=== PATIENT | male | born 1995 | race Caucasian/White ===

== ENCOUNTER 2024-12-08 01:59 | Emergency (ER) | payer MEDICAID, SELFPAY ==
[2024-12-08 02:00] VITALS: BP 113/70; PULSE 78; RESP 18; TEMP 36.9; O2SAT 97; BMI 29.5
--- NOTE | 2024-12-08 02:32 | EDS_ITS ---
HPI HPI - URI History of Present Illness Chief Complaint: Ear Problem Informant: patient Narrative Narrative: Healthy 29-year-old male states he has had a mild nonproductive cough recently without dyspnea or chest pain, and in the past 4 days he has had a left earache without changes in hearing or discharge, as well as for the past 2 days the left maxillary molar tooth ache without discharge or bleeding. No facial swelling, no throat swelling. ROS ROS ED Constitutional Constitutional ED: Denies chills or fever(s) Eyes Eyes: Denies change in vision or double vision ENT ENT ED: Reports ear pain left and nasal congestion; Denies sore throat Cardiovascular Cardiovascular: Denies chest pain or palpitations Respiratory/Chest Respiratory/Chest: Reports cough; Denies dyspnea or sputum Gastrointestinal Gastrointestinal: Denies abdominal pain, diarrhea, nausea or vomiting Genitourinary Genitourinary ED: Denies dysuria or hematuria Musculoskeletal Musculoskeletal: Denies myalgias or neck pain Integumentary Denies abscess or rash Neurologic Neurologic: Denies headache(s), paresthesias or weakness Psychiatric Psychiatric: Denies depression or suicidal thoughts Endocrine Endocrinology: Denies polydipsia or polyuria PFSH PFSH Medical History no medical history no medical history Home Medications ?Medication ?Instructions ?Recorded ?Last Taken ?Type albuterol sulfate 90 mcg/actuation 2 puff inhalation 4 X/DAY 12/08/24 Unknown History aerosol inhaler amoxicillin 875 mg-potassium 875 mg PO Q12H #20 TABLET S 12/08/24 Unknown Rx clavulanate 125 mg tablet benzonatate 200 mg capsule 200 mg PO TID PRN PRN cough 12/08/24 Unknown History Allergy/AdvReac Type Severity Reaction Status Date / Time No Known Allergies Allergy Verified 12/08/24 01:59 Surgical History H/O wisdom tooth extraction Social History Smoking Status: Never smoker EXAM Physical Exam Const Vital Signs: 12/08/24 02:00 12/08/24 02:53 Temperature 98.4 F 98.0 F Temperature Source Oral Pulse Rate 78 85 Respiratory Rate 18 16 Blood Pressure 113/70 123/78 H Blood Pressure Mean 84 93 Pulse Ox 97 100 Oxygen Delivery Method Room Air Positive well nourished and well developed General Appearance ED: well developed and NAD HEENT Reports moist mucous membranes HEENT Narrative: No trismus. Tender tooth #17, without an associated abscess. No bleeding from the gums or signs of necrosis. No external swelling/asymmetry. No periauricular lymphadenopathy or other cervical lymphadenopathy. Left TM is erythematous and dulled, there is no evidence of perforation or EAC swelling. Right TM and EAC are normal. normocephalic and atraumatic Face and Sinus: sinuses nontender Throat: Negative for posterior oropharynx abnormal Eyes PERRL and EOMs intact bilaterally Neck no lymphadenopathy, supple and no meningeal signs Resp normal respiratory effort and clear to auscultation bilaterally Cardio no murmurs Rate: regular rate Rhythm: regular rhythm Neuro oriented x3, CN's II-XII intact bilaterally and no sensory deficits noted Sensorium / Orientation: alert Gait (Neuro): normal gait Motor Exam: strength 5/5 throughout Psych mental status grossly normal and thought process normal Skin no rashes or lesions noted and no wounds Lesions: no lesions Rashes: no rashes MDM MDM MDM Narrative Medical decision making narrative: Consistent with a left otitis media likely related or secondary to viral URI. His lungs are clear, vital signs are normal, pulse ox 100% I do not think he needs a chest x-ray or other testing for that. With regards to the tooth, the Augmentin that we placed him on for the ear should cover any early dental infection, he already has an appointment with dentistry this coming week, and he was given an ibuprofen for the pain here tonight. Discharge Plan Triage Chief Complaint: Ear Problem ED Provider: Edis Pérez Dx/Rx/DC Orders Clinical Impression: Acute left otitis media, Viral URI with cough, Odontalgia Instructions: ED Otitis Media Adult Prescriptions: New amoxicillin-pot clavulanate 875-125 mg tablet 875 mg PO Q12H Qty: 20 0RF No Action albuterol sulfate 90 mcg/actuation HFA aerosol inhaler 2 puff inhalation 4X/DAY benzonatate 200 mg capsule 200 mg PO TID PRN PRN (Reason: cough) Primary Care Provider: Care Physician,No Primary Referrals: Dentist,Your [STAFF PHYSICIAN, Dentistry] - Keep [facility] appointment Doctor,Your [Non-Staff, None] - 1 Week if not improving Referral Note: with regards to your earache Print Language: Persian Disposition Disposition: Home, Self Care Discharge Date/Time: 12/08/24 02:55
--- OUTSIDE RECORDS SUMMARY | 2024-12-08 02:46 | XMS RPT_ITS | CCD ---
Author Organization [facility] Care Team Providers Care Environmental Management Specialist Name Role Phone Tank Donis Unavailable Unavailable Tank Donis Unavailable Unavailable Young, Isabel S Unavailable Unavailable Young, Isabel S Unavailable Unavailable Gage Lyon E Unavailable Gage Lyon Primary Care Provider No, Physician Primary Care Provider Unavailabl e No, Physician Primary Care Provider Unavailabl e Brad, Edward E Primary Care Provider GAGE LYON Primary Care Unavailabl marylou Lyon MD, Edkristy Primary Care Provider [phone] PACO WILKINS Attending Unavailable GAGE LYON Primary Care Unavailabl JOSE EDUARDO Arellano Attending Unavailable NO, PHYSICIAN Primary Care Unavailable JOSE EDUARDO LUCAS Attending Unavailable NO, PHYSICIAN Primary Care Unavailable KRIS HERNANDEZ Attending Unavaila ble NO, PHYSICIAN Primary Care Unavailable NO, PHYSICIAN Primary Care Unavailable Gage Lyon MD Primary Care Provider Unavaila ble Unavailable Primary Care Provider Unavailabl e Unavailable Primary Care Provider Unavailabl e LYON, EDWARD Primary Care Unavailable JOSE MIGUEL TYLER Attending Unavailable LYON, EDWARD Primary Care Unavailable KEESHA PADILLA Attending Unavailable Assessment, Health Risk Referring Unavaila ble Assessment, Health Risk Attending Unavaila ble LYON, EDWARD Primary Care Unavailable KRZYSZTOF BYRNE Attending Unavailable DIMITRIOS ZAPATA Attending Unavailable VICTOR HUGO SANTIAGO Attending Unavail able NO, PHYSICIAN Primary Care Unavailable YOU PHAN Attending Unavailable NO, PHYSICIAN Primary Care Unavailable Medications Current Medications Medication Drug Class(es) Dates Sig (Normalized) Sig (Original) amoxicillin 875 mg / clavulanate 125 mg oral tablet (3 sources) Penicillin-class Antibacterial Start: 10-12-2023 End: 10-12-2023 1 tablet, Oral, ONCE, 1 dose, On 10/12/23 at 2345 Start: 10-12-2023 End: 10-19-2023 take 1 tablet by mouth every twelve hours Amoxicillin-clavulanate 875-125 MG table t Take 1 tablet by mouth every 12 hours for 7 days. 14 tablet 10/12/2023 10/19/2023 Active Start: 07-21-2023 End: 07-21-2023 1 tablet, Oral, ONCE, 1 dose , On Padmini 07/21/23 at 0130 azithromycin 250 mg oral tablet (3 sources) Macrolide Antimicrobial Start: 02-27-2018 End: 03-02-2018 take 1 tablet by mouth once daily azithromycin 250 MG Tab tablet 250 mg PO Once Daily X 4 days 4 tablet 0 02/27/2018 03/02/2018 Active Start: 02-27-2018 End: 02-27-2018 azithromycin (ZITHROMAX) tab let 500 mg benzonatate 200 mg oral capsule (13 sources) Non-narcotic Antitussive Start: 05-22-2018 take 0.5 capsule by mouth three times daily as needed for cough benzonatate 200 MG Cap capsule Take 0.5 capsules by mouth 3 times daily as needed for Cough. 20 capsule 05/22/2018 Active Start: 02-27-2018 End: 05-22-2018 take 1 capsule by mouth three times daily as needed for cough benzonatate 100 MG Cap capsule Take 1 capsule by mouth 3 times daily as needed for Cough. 21 capsule 0 02/27/2018 05/22/2018 Discontinued brompheniramine maleate 0.4 mg/ml / dextromethorphan hydrobromide 2 mg/ml / pseudoephedrine hydrochloride 6 mg/ml oral solution (2 sources) alpha-Adrenergic Agonist, Uncompetitive E-zhhcpk-I-aspartate Receptor Antagonist, Sigma-1 Agonist Start: 06-03-2024 take 5-10 mL by mouth every eight hours as needed pzrmglpowqgkqye-tbvziptdgdtzvhb-llkkatat thorphan 30-2-10 MG/5ML Syrup Take 5-10 mL by mouth every 8 hours as needed. 118 mL 06/03/2024 Active cetirizine hydrochloride 10 mg oral tablet (3 sources) Histamine-1 Receptor Antagonist Start: 01-22-2024 take 1 tablet by mouth once daily Cetirizine 10 MG tablet Take 1 tablet by mouth daily. 30 tablet 01/22/2024 Active ciprofloxacin 3 mg/ml / dexamethasone 1 mg/ml otic suspension (6 sources) Corticosteroid, Quinolone Antimicrobial Ciprofloxacin-dexame thasone 0.3-0.1 % Suspension otic suspension 4 drops Twice daily. Active fluticasone propionate 0.05 mg/actuat metered dose nasal spray (6 sources) Corticosteroid Start: 01-22-2024 take 2 spray(s ) nasal route once daily fluticasone 50 MCG/ACT Suspension nasal spray 2 sprays each nostril daily 9.9 mL 01/22/2024 Active Start: 11-30-2022 End: 11-30-2023 fluticasone 50 MCG/ACT Suspe nsion nasal spray 2 sprays by Nasal route daily. 11/30/2022 11/30/2023 Active ibuprofen 400 mg oral tablet (10 sources) Nonsteroidal Anti-inflammatory Drug Start: 06-04-2020 take 1 tablet by mouth every six hours as needed ibuprofen (ADVIL,MOTRIN) 400 MG tablet Take 1 (one) tablet (400 mg total) by mouth every 6 (six) hours as needed . 30 tablet 0 06/04/2020 Active Start: 06-04-2020 End: 06-04-2020 ibuprofen (ADVIL,MOTRIN) tab let 400 mg Start: 05-23-2018 take 1 tablet by georgie every eight hours as needed ibuprofen 600 MG Tab tablet Take 1 tablet by mouth every 8 hours as needed for Moderate Pain or Severe Pain. 21 tablet 05/23/2018 Active ondansetron 4 mg disintegrating oral tablet (4 sources) Serotonin-3 Receptor Antagonist Start: 08-08-2019 End: 08-13-2019 take 1 tablet by mouth every eight hours as needed ondansetron (Zofran ODT) 4 MG disintegrating tablet Dissolve 1 (one) tablet (4 mg total) on top of tongue every 8 (eight) hours as needed for nausea . 15 tablet 0 08/08/2019 Active Start: 08-08-2019 End: 08-08-2019 ondansetron (ZOFRAN) injecti on 4 mg predniSONE (3 sources) Start: 01-22-2024 predniSONE 10 MG (21) Tab Therapy Pack Take 6 pills on day 1, then 5, 4, 3, 2 and 1 each day sequentially 21 Each 01/22/2024 Active Completed/Discontinued Medications Medication Drug Class(es) Dates Sig (Normalized) Sig (Original) acetaminophen 500 mg oral tablet (1 source) Start: 05-23-2018 End: 05-23-2018 acetaminophen (TYLENOL) tablet 1,000 mg acetaminophen 325 mg / HYDROcodone bitartrate 5 mg oral tablet (2 sources) Opioid Agonist Start: 10-12-2023 End: 10-12-2023 Oral, ONCE, 1 dose, On Tue10/12/23 at 2345, Provide patient with 4 pack of Acetaminophen/Hydroc odone 325-5 mg, take 1 tabs by mouth every 4 hours as needed for pain. Nursing to document as GIVEN on the MAR and include comment of patient receipt of the 4 pack. Start: 07-21-2023 End: 07-21-2023 1 tablet, Oral, ONCE, 1 dose , On Padmini 07/21/23 at 0130 24 hr fexofenadine hydrochloride 180 mg / pseudoephedrine hydrochloride 240 mg extended release oral tablet (4 sources) alpha-Adrenergic Agonist, Histamine-1 Receptor Antagonist Start: 11-30-2022 End: 01-22-2024 take 180-240 mg by mouth every twenty-four hours fexofenadine-pseudoephedrine 180-240 MG Tab SR 24 HR Take 1 tablet by mouth daily. 30 tablet 11/30/2022 01/22/2024 Discontinued 1000 ml sodium chloride 9 mg/ml injection (1 source) Start: 08-08-2019 End: 08-08-2019 sodium chloride 0.9% (NS) bolus 1,000 mL Problems Active Problems Problem Classification Problem Date Documented Da te Episodic/Chronic Chronic obstructive pulmonary disease and bronchiectasis (1 source) Bronchitis Episodic Conditions associated with dizziness or vertigo (1 source) Benign paroxysmal positional vertigo; Translations: [Vertigo, benign positional, unspecified laterality] Episodic Nausea and vomiting (1 source) Nausea, vomiting and diarrhea; Translations: [Nausea vomiting and diarrhea] Episodic Other lower respiratory disease (1 source) Respiratory tract congestion and cough; Translations: [Respiratory tract congestion with cough] 01-22-2024 Episodic Other upper respiratory disease (1 source) Allergic rhinitis; Translations: [Allergic rhinitis, unspecified] 01-22-2024 Chronic Other upper respiratory disease (2 sources) Allergic rhinitis, unspecified; Translations: [Allergic rhinitis, unspecified] Onset: 01-22-2024 Chronic Other upper respiratory infections (11 sources) Viral upper respiratory tract infection; Translations: [Acute pharyngitis] Onset: 06-03-2024 12-04-2022 Episodic Otitis media and related conditions (6 sources) Unspecified Eustachian tube disorder, right ear; Translations: [Acute serous otitis media, right ear] Onset: 07-01-2024 Episodic Unclassified (1 source) Sprain of right ankle; Translations: [Sprain of right ankle, unspecified ligament, initial encounter] Unclassified (2 sources) Exposure to STD; Translations: [Exposure to STD] Onset: 07-10-2024 Unclassified (1 source) Other specified cough; Translations: [Other specified cough] Onset: 01-22-2024 Viral infection (1 source) Viral disease; Translations: [Viral syndrome] Episodic Past or Other Problems Problem Classification Problem Date Documented Da te Episodic/Chronic Acute bronchitis (2 sources) Acute bronchitis, unspecified; Translations: [Acute bronchitis, unspecified] Onset: 02-25-2023 Episodic Disorders of teeth and jaw (9 sources) Infection of tooth; Translations: [Periapical abscess without sinus] Onset: 07-04-2023 07-21-2023 Episodic Other ear and sense organ disorders (2 sources) Other specified disorders of right ear; Translations: [Other specified disorders of right ear] Onset: 11-30-2022 Episodic Unclassified (1 source) Other specified cough; Translations: [Other specified cough] Onset: 01-22-2024 NEGATED: Highlighted row has been ruled out!Unclassified (2 sources) No known active problems 06-28-2017 Results Test Name Value Interpretation Reference Range Facility ED Prov Noteon 11-09-2024 ED Prov Note ED PROVIDER NOTE [facility] EMERGENCY [facility]PART[facility] NAME: Landry Durham AGE: 29 y.o. : 1995 VISIT DATE: 11/09/2024 CSN: [id number] PCP: No, Physician Chief Complaint Patient presents with Cerumen Impaction 29-year-old male presents complaining of feeling of clogging of his right eardrum or ear canal. There is a pressure feeling there but no actual pain. He went to an urgent care a couple of days ago and was told there was wax and they could not see his eardrum. They placed him on amoxicillin which she has been taking for a couple of days but he has not resolved his feeling in that ear. His left ear feels fine. He has had some nasal congestion recently. No sore throat. No cough. History reviewed. No pertinent past medical history. Past Surgical History: Procedure Laterality Date WISDOM TOOTH EXTRACTION History reviewed. No pertinent family history. Social History [1] Previous Medications Medication Sig amoxicillin-clavulanate (AUGMENTIN) 875-125 mg per tablet ciprofloxacin-dexAMETHasone (CIPRODEX) otic suspension 4 (four) drops 2 (two) times a day . fluticasone propionate (FLONASE) 50 mcg/actuation nasal spray Instill 2 (two) sprays into each nostril daily . ondansetron (Zofran ODT) 4 MG disintegrating tablet Dissolve 1 (one) tablet (4 mg total) on top of tongue every 8 (eight) hours as needed for nausea . Allergies[2] Review of Systems All other review of systems not mentioned in the HPI are negative. Patient Vitals for the past 24 hrs: BP Temp Temp src Pulse Resp SpO2 Height Weight 11/09/24 2137 117/79 98.5 degrees F (36.9 degrees C) Oral 82 16 98 % 6' 1 98.9 kg (218 lb) Physical Exam CONSTITUTIONAL: Well-developed, well-nourished. Speaking full sentences in no apparent distress. EYES: No conjunctival injection. No icterus. EARS: External ears appear normal. No tragal tenderness. Left EAC is clear with normal bony landmarks and normal TM. Right EAC with small amount of wax but I am able to see around and see its tympanic membrane which shows normal bony landmarks but with serous fluid and mild erythema. NOSE: The nose is normal in appearance. There is no rhinorrhea. NECK: The trachea is mid-line. No adenopathy CARDIOVASCULAR: The heart has a regular rate and rhythm. No cyanosis RESPIRATORY: There is normal chest excursion with respiration. No stridor. GASTROINTESTINAL: Abdomen nondistended. MUSCULOSKELETAL: There are no deformities noted in all four extremities. INTEGUMENTARY: The exposed skin appears normal for age and race. It is warm and dry. No petechiae or purpuric lesions are noted. PSYCHOLOGICAL: The patient's mood and manner are appropriate. Grooming and personal hygiene are appropriate. NEURO: No focal weakness with equal strength bilaterally. . Laboratory & Radiographic Imaging (if done): No results found for this visit on 11/09/24. No orders to display Procedures Medical Decision Making Patient presents with exam consistent with serous otitis media and eustachian tube dysfunction. EAC is with small amount of wax but there is no cerumen impaction present. Patient has been on a couple of days of antibiotics so I am not going to stop those. Patient will be treated with Sudafed, Afrin, Zyrtec. No evidence of acute mastoiditis, or other serious bacterial illness/sepsis. Okay for outpatient therapy. Follow up and return precautions were discussed. . . Clinical Impression: 1. Dysfunction of right eustachian tube 2. Right acute serous otitis media, recurrence not specified ED Disposition ED Disposition Discharge Condition Stable Comment Landry B Jimenez discharged to home/self care in stable condition. Follow-up Information 1. Please follow up. Follow-up with primary care doctor in 3 to 4 days if not improved Contact information for after-discharge care Follow-up information has not been specified. New Prescriptions oxymetazoline (AFRIN) 0.05 % nasal spray Instill 2 (two) sprays into each nostril 2 (two) times a day for 3 days . pseudoePHEDrine (SUDAFED) 120 mg 12 hr tablet Take 1 (one) tablet (120 mg total) by mouth every 12 (twelve) hours for 5 days . cetirizine (ZYRTEC) 10 MG tablet Take 1 (one) tablet (10 mg total) by mouth daily for 10 days . [1] Social History Socioeconomic History Marital status: Single Tobacco Use Smoking status: Never Smokeless tobacco: Never Vaping Use Vaping status: Former Substance and Sexual Activity Alcohol use: Not Currently Comment: rarely Drug use: Never [2] No Known Allergies You Phan MD 11/09/24 6053 AUTHENTICATED BY YOU PHAN, ON 11/09/2024 21:54:[address] [facility] RAPID STREP A ANTIGENon 06- S. pyogenes Ag Ql (Throat) Negative NEGATIVE [facility] Comment on above: STREP CULTURE TO FOLLOW TESTING PERFORMED BY SRINIVASA Testing performed at [address] RAPID STREP GROUP Aon 2024 S. pyogenes Ag IA Ql (Unsp spec) Negative Normal NEGATIVE [facility] Comment on above: Result Comment: STREP CULTURE TO FOLLOW TESTING PERFORMED BY SRINIVASA Testing performed at [place] [address] Performed By: #### R SAT #### [place] [address] THROAT CULTUREon 08-26-2024 Throat culture SPECIMEN DESCRIPTION THROAT SWAB CULTURE USUAL OROPHARYNGEAL JEAN CARLOS * Result Note: Testing performed at [place] [address] * REPORT STATUS 08/28/2024 * Result Note: FINAL * Normal [facility] Comment on above: Performed By: #### THRC #### [place] [address] Mumps Antibody,IgGon 025 MUMPS Ab, IgG < 9.0 Low Immune >10.[address] [facility] Comment on above: Result Comment: Negative <9.0 Equivocal 9.0 - 10.9 Positive >10.9 A positive result generally indicates past exposure to Mumps virus or previous vaccination. Performed By: #### L 509.4006, L3100.3400, L3400.1750 #### [facility] [address] [place], [place], [id number] [facility] EMP Rubeola Titeron 05-0 RUBEOLA Ab, IgG 202.0 AU/mL Normal Immune >16.4 [facility] Comment on above: Result Comment: Negative <13.5 Equivocal 13.5 - 16.4 Positive >16.4 Presence of antibodies to Rubeola is presumptive evidence of immunity except when acute infection is suspected. Performed at: [facility] [address] [id number] Building Custodial Supervisor: Jose Alberto Bucio PhD, Phone: [phone] Performed By: #### L 509.4006, L3100.3400, [id number] #### [facility] [address] [place], [place], [id number] Hepatitis B Surface Antibody on 07-24-2024 HEP B Surf Ab REAC Normal [facility] Comment on above: Result Comment: <8.5 mIU/mL: Non-Reactiv e 8.5<= x <11.5 mIU/mL: Indeterminate >=11.5 mIU/mL: Reactive Non Reactive: Inconsistent with immunity less than <10 mIU/mL Reactive: Consistent with immunity greater than or equal to 10 mIU/mL Performed By: #### L 3890.6202 #### [facility] [address] [place], [place], [id number] L509.4006on 07-24-2024 Rubella IgG REAC Normal Nonreactive [facility] Comment on above: Result Comment: Antibody Result: Interpr etation Non-Reactive: Non-Immune Reactive: Immune The following results were obtained with the [employer] Rubella IgG assay. Results from assays of other manufacturers cannot be used interchangeably. Performed By: #### L 509.4006, L3100.3400, L3400.1750 #### [facility] [address] [place], [place], [id number] ED Prov Noteon 07-01-2024 ED Prov Note ED PROVIDER NOTE [facility] EM[facility]Y [facility] NAME: Landry Durham AGE: 28 y.o. : 1995 VISIT DATE: 07/01/2024 CSN: [id number] PCP: No, Physician Chief Complaint Patient presents with Otalgia 28-year-old male presents here today complaining of right ear pain since Tuesday. He denies any drainage. He has had some nasal congestion. He has been using some DayQuil without relief. Due to ongoing right ear pain came to the ER for further evaluation. He denies drainage. He used to get ear infections a lot as a kid. He did have tympanostomy tubes as an infant. No past medical history on file. Past Surgical History: Procedure Laterality Date WISDOM TOOTH EXTRACTION No family history on file. Social History [1] Previous Medications Medication Sig ciprofloxacin-dexAMETHasone (CIPRODEX) otic suspension 4 (four) drops 2 (two) times a day . fluticasone propionate (FLONASE) 50 mcg/actuation nasal spray Instill 2 (two) sprays into each nostril daily . ondansetron (Zofran ODT) 4 MG disintegrating tablet Dissolve 1 (one) tablet (4 mg total) on top of tongue every 8 (eight) hours as needed for nausea . Allergies[2] Review of Systems Constitutional: Negative for fever. HENT: Positive for ear pain and postnasal drip. Negative for ear discharge and sore throat. Respiratory: Negative for cough. Cardiovascular: Negative for chest pain. Gastrointestinal: Negative for vomiting. Musculoskeletal: Negative for arthralgias. Skin: Negative for rash. Neurological: Negative for headaches. Patient Vitals for the past 24 hrs: BP Temp Temp src Pulse Resp SpO2 Height Weight 07/01/24 1242 117/87 98.2 degrees F (36.8 degrees C) Oral 74 18 98 % 5' 11 99.8 kg (220 lb) Physical Exam Vitals and nursing note reviewed. Constitutional: Appearance: He is well-developed. HENT: Head: Normocephalic and atraumatic. Right Ear: Tympanic membrane is injected, erythematous and bulging. Left Ear: Tympanic membrane is not injected. Musculoskeletal: General: Normal range of motion. Pulmonary: Effort: Pulmonary effort is normal. Skin: General: Skin is warm and dry. Neurological: Mental Status: He is alert and oriented to person, place, and time. Psychiatric: Behavior: Behavior normal. Laboratory & Radiographic Imaging (if done): No results found for this visit on 07/01/24. No orders to display Procedures Medical Decision Making 28-year-old male presents ER today with right ear pain with a bulging tympanic membrane and redness. Patient was started on Amoxil. I did recommend continue on his DayQuil to help relieve the congestion. Tylenol recommended for pain. The patient has been informed that they may have pre-hypertension or hypertension based on a blood pressure reading in the Emergency Department. I recommend that the patient call the primary care provider listed on their discharge instructions or a physician of their choice as soon as possible to arrange follow-up in the next 4 weeks for further evaluation of possible pre-hypertension or hypertension. . Clinical Impression: 1. Right otitis media, unspecified otitis media type ED Disposition ED Disposition Discharge Condition Stable Comment Landry Durham discharged to home/self care in stable condition. Follow-up Information Follow-up information has not been specified. Contact information for after-discharge care Follow-up information has not been specified. New Prescriptions amoxicillin (AMOXIL) 500 MG capsule Take 1 (one) capsule (500 mg total) by mouth 3 (three) times a day for 7 days . Victor Hugo Santiago MD 07/01/24 1246 [1] Social History Socioeconomic History Marital status: Single Tobacco Use Smoking status: Never Smokeless tobacco: Never Vaping Use Vaping status: Some Days Substance and Sexual Activity Alcohol use: Not Currently Comment: rarely Drug use: Never [2] No Known Allergies Victor Hugo Santiago MD 07/01/24 1246 AUTHENTICATED BY VICTOR HUGO SANTIAGO, ON 07/01/2024 12:46:[address] [facility] RAPID STREP A ANTIGENon 05-19 S. pyogenes Ag Ql (Throat) Negative NEGATIVE [facility] Comment on above: STREP CULTURE TO FOLLOW TESTING PERFORMED BY SRINIVASA [facility] RAPID STREP GROUP Aon 2024 S. pyogenes Ag IA Ql (Unsp spec) Negative Normal NEGATIVE [facility] Comment on above: Result Comment: STREP CULTURE TO FOLLOW TESTING PERFORMED BY SRINIVASA Performed By: #### R SAT #### Testing performed at [place] [id number] THROAT CULTUREon 06-03-2024 Throat culture SPECIMEN DESCRIPTION THROAT SWAB CULTURE USUAL OROPHARYNGEAL JEAN CARLOS * Result Note: Testing performed at [place], [place] [address] * REPORT STATUS 06/06/2024 * Result Note: FINAL * Normal [facility] Comment on above: Performed By: #### THRC #### Testing performed at [address] [address] Testing performed at [address] [address] Portable XR Chest Viewson IMPRESSION: No acute infiltrate or evidence of cardiac decompensation. The overall appearance of the chest is essentially unchanged. RADIOLOGY EXAM: XR CHEST 1 VIE W PORTABLE at 1834 hours HISTORY: prolonged productive cough COMPARISON: 05/27/2014 TECHNIQUE: AP upright portable chest x-ray FINDINGS: The heart is not enlarged and the vasculature is not distended. No acute infiltrate, effusion or pneumothorax is identified. The osseous structures are grossly intact. RADIOLOGY Moiz Damico MD - 01/22/2024 EXAM: XR CHEST 1 VIEW PORTABLE at 1834 hours HISTORY: prolonged productive cough COMPARISON: 05/27/2014 TECHNIQUE: AP upright portable chest x-ray FINDINGS: The heart is not enlarged and the vasculature is not distended. No acute infiltrate, effusion or pneumothorax is identified. The osseous structures are grossly intact. IMPRESSION IMPRESSION: No acute infiltrate or evidence of cardiac decompensation. The overall appearance of the chest is essentially unchanged. [facility] Radiology Study observation (narrative) [facility] Portable XR Chest ViewsOrder ed By: Moiz Damico on 01-22-2024 [facility] Work Phone: XR CHEST 1 VIEW PORTABLEon 1 03-23-2023 XR CHEST 1 VIEW PORTABLE EXAM: XR CHEST 1 VIEW PORTABLE at 1834 hours HISTORY: prolonged productive cough COMPARISON: 05/27/2014 TECHNIQUE: AP upright portable chest x-ray FINDINGS: The heart is not enlarged and the vasculature is not distended. No acute infiltrate, effusion or pneumothorax is identified. The osseous structures are grossly intact. IMPRESSION: No acute infiltrate or evidence of cardiac decompensation. The overall appearance of the chest is essentially unchanged. Normal [facility] ED Prov Noteon 09-08-2023 ED Prov Note ED PROVIDER NOTE [facility] EMERGENCY DEPARTMENT NAME: Landry Durham AGE: 27 y.o. : 1995 VISIT DATE: 09/07/2023 CSN: [id number] PCP: No, Physician Chief Complaint Patient presents with Dental Pain Patient presents to ED for evaluation of dental pain that began earlier this evening. Throbbing in nature. History of similar and states I know they want to do some work to that area. Patient was supposed to have an appointment with his dentist previously but was told by the clinic that they got him mixed up with another Landry and his appointment was rescheduled for September 19. He took a couple Tylenol around 7 PM states it did not really help. He denies difficulty swallowing, ear pain, facial swelling headache fever and chills. History reviewed. No pertinent past medical history. Past Surgical History: Procedure Laterality Date WISDOM TOOTH EXTRACTION History reviewed. No pertinent family history. Social History Socioeconomic History Marital status: Single Tobacco Use Smoking status: Never Smokeless tobacco: Never Vaping Use Vaping Use: Some days Substance and Sexual Activity Alcohol use: Not Currently Comment: rarely Drug use: Never Previous Medications Medication Sig ciprofloxacin-dexAMETHasone (CIPRODEX) otic suspension 4 (four) drops 2 (two) times a day . fluticasone propionate (FLONASE) 50 mcg/actuation nasal spray Instill 2 (two) sprays into each nostril daily . ondansetron (Zofran ODT) 4 MG disintegrating tablet Dissolve 1 (one) tablet (4 mg total) on top of tongue every 8 (eight) hours as needed for nausea . No Known Allergies Review of Systems Constitutional: Negative. HENT: Positive for dental problem. Negative for congestion, ear discharge, ear pain, facial swelling, rhinorrhea, sinus pressure, sinus pain, sneezing, sore throat and trouble swallowing. Respiratory: Negative. Cardiovascular: Negative. Musculoskeletal: Negative. Skin: Negative. Patient Vitals for the past 24 hrs: BP Temp Temp src Pulse Resp SpO2 Height Weight 09/08/23 0000 121/75 98.1 degrees F (36.7 degrees C) Oral 72 16 96 % 5' 11 105.3 kg (232 lb 3.2 oz) Physical Exam Constitutional: Appearance: Normal appearance. HENT: Head: Normocephalic and atraumatic. Right Ear: Tympanic membrane, ear canal and external ear normal. Left Ear: Tympanic membrane, ear canal and external ear normal. Nose: Nose normal. Mouth/Throat: Mouth: Mucous membranes are moist. Dentition: Dental tenderness present. No dental abscesses. Pharynx: Oropharynx is clear. Eyes: Conjunctiva/sclera: Conjunctivae normal. Pupils: Pupils are equal, round, and reactive to light. Cardiovascular: Rate and Rhythm: Normal rate and regular rhythm. Pulses: Normal pulses. Heart sounds: Normal heart sounds. Musculoskeletal: General: Normal range of motion. Cervical back: Normal range of motion and neck supple. Pulmonary: Effort: Pulmonary effort is normal. Breath sounds: Normal breath sounds. Lymphadenopathy: Cervical: No cervical adenopathy. Skin: General: Skin is warm and dry. Capillary Refill: Capillary refill takes less than 2 seconds. Neurological: General: No focal deficit present. Mental Status: He is alert and oriented to person, place, and time. . Laboratory & Radiographic Imaging (if done): No results found for this visit on 09/07/23. No orders to display Procedures Medical Decision Making Upon examination, patient sitting up in chair injuries, no distress noted. Alert and oriented answering questions verbally. Vital signs are stable. Patient presents to ED for evaluation of dental pain that began earlier this evening. Throbbing in nature. History of similar and states I know they want to do some work to that area. Patient was supposed to have an appointment with his dentist previously but was told by the clinic that they got him mixed up with another Landry and his appointment was rescheduled for September 19. He took a couple Tylenol around 7 PM states it did not really help. He denies difficulty swallowing, ear pain, facial swelling headache fever and chills. Differential diagnosis includes but limited to dental abscess, dental fracture, dental caries, fractured tooth. I reviewed his PSH and previous medical records. Denies PMH and takes no routine medications. Dose of penicillin VK, Tylenol, and Motrin ordered prior to discharge. Discharged with penicillin VK prescription. Encouraged to make sure he keeps his appointment on September 19 with his dentist. Patient verbalizes understanding and is in agreement. Amount and/or Complexity of Data Reviewed Independent Historian: Details: Female visitor at side External Data Reviewed: labs, radiology and notes. Risk Prescription drug management. The patient has been informed that they may have pre-hypertension or hypertension based on a blood pressure reading in the [facility] (more content not included)... Normal [facility] ED Prov Noteon 07-20-2023 ED Prov Note ED PROVIDER NOTE [facility] EMERGENCY DEPARTMENT NAME: Landry Durham AGE: 27 y.o. : 1995 VISIT DATE: 07/20/2023 CSN: [id number] PCP: No, Physician Chief Complaint Patient presents with Dental Pain Patient presents to the emergency department for complaint of left upper dental pain. Patient states that he woke up about 6 hours ago with this pain. States that it hurts to try to chew anything. States that the pain is shooting all along his upper jaw. He denies any difficulty swallowing or breathing. Denies headache dizziness and blurred vision. Denies any fever or chills. No other complaints or concerns at this time. History reviewed. No pertinent past medical history. Past Surgical History: Procedure Laterality Date WISDOM TOOTH EXTRACTION History reviewed. No pertinent family history. Social History Socioeconomic History Marital status: Single Tobacco Use Smoking status: Never Smokeless tobacco: Never Vaping Use Vaping Use: Some days Substance and Sexual Activity Alcohol use: Not Currently Comment: rarely Drug use: Never Previous Medications Medication Sig ciprofloxacin-dexAMETHasone (CIPRODEX) otic suspension 4 (four) drops 2 (two) times a day . fluticasone propionate (FLONASE) 50 mcg/actuation nasal spray Instill 2 (two) sprays into each nostril daily . ibuprofen (ADVIL,MOTRIN) 400 MG tablet Take 1 (one) tablet (400 mg total) by mouth every 6 (six) hours as needed . ibuprofen (ADVIL,MOTRIN) 400 MG tablet Take 1 (one) tablet (400 mg total) by mouth every 6 (six) hours as needed . ondansetron (Zofran ODT) 4 MG disintegrating tablet Dissolve 1 (one) tablet (4 mg total) on top of tongue every 8 (eight) hours as needed for nausea . No Known Allergies Review of Systems Constitutional: Negative for chills, diaphoresis, fatigue and fever. HENT: Positive for dental problem. Negative for congestion, ear pain, facial swelling, postnasal drip, rhinorrhea, sinus pressure, sore throat, trouble swallowing and voice change. Eyes: Negative for photophobia, discharge and visual disturbance. Respiratory: Negative for cough, chest tightness, shortness of breath and wheezing. Cardiovascular: Negative for chest pain, palpitations and leg swelling. Gastrointestinal: Negative for abdominal pain, blood in stool, constipation, diarrhea, nausea and vomiting. Genitourinary: Negative for decreased urine volume, difficulty urinating, dysuria, flank pain, hematuria and urgency. Musculoskeletal: Negative for arthralgias and back pain. Skin: Negative for rash. Neurological: Negative for dizziness, syncope, speech difficulty, weakness, light-headedness and headaches. Psychiatric/Behavioral: Negative for confusion and suicidal ideas. All other systems reviewed and are negative. Patient Vitals for the past 24 hrs: BP Temp Temp src Pulse Resp SpO2 07/20/23 2305 113/75 98.4 degrees F (36.9 degrees C) Oral 78 14 98 % Physical Exam Vitals and nursing note reviewed. Constitutional: General: He is not in acute distress. Appearance: He is well-developed. He is not toxic-appearing. HENT: Head: Normocephalic and atraumatic. Right Ear: External ear normal. Left Ear: External ear normal. Mouth/Throat: Mouth: Mucous membranes are moist. Comments: Slight inflammation noted along the left upper posterior gumline Fracture noted to the left upper second molar Eyes: Extraocular Movements: Extraocular movements intact. Conjunctiva/sclera: Conjunctivae normal. Cardiovascular: Rate and Rhythm: Normal rate and regular rhythm. Pulses: Normal pulses. Heart sounds: Normal heart sounds. Musculoskeletal: General: No deformity. Cervical back: Normal range of motion. Pulmonary: Effort: Pulmonary effort is normal. No respiratory distress. Breath sounds: Normal breath sounds. Skin: General: Skin is warm and dry. Neurological: General: No focal deficit present. Mental Status: He is alert. Psychiatric: Mood and Affect: Mood normal. . Laboratory & Radiographic Imaging (if done): No results found for this visit on 07/20/23. No orders to display Procedures Medical Decision Making Patient presents to the emergency department for complaint of left upper dental pain. Patient states that he woke up about 6 hours ago with this pain. States that it hurts to try to chew anything. States that the pain is shooting all along his upper jaw. He denies any difficulty swallowing or breathing. Denies headache dizziness and blurred vision. Denies any fever or chills. No other complaints or concerns at this time. On physical exam - Slight inflammation noted along the left upper posterior gumline Fracture noted to the left upper second molar Patient will be started on amoxicillin and referred to dentistry. He is given pain medication here. Asked take Tylenol and ibuprofen as needed for pain at home. . . Clinical Impression: (more content not included)... Normal [facility] XR CHEST PA/APon 02-25-2023 XR CHEST PA/AP EXAMINATION: XR CHEST PA/AP 02/25/2023 11:12 am HISTORY: ORDERING SYSTEM PROVIDED HISTORY: Cough, TECHNOLOGIST PROVIDED HISTORY: Illness/Other Reason for exam: cough Encounter Type: Initial Additional signs and symptoms: . ORDERING SYSTEM PROVIDED DIAGNOSIS CODES: COMPARISON: Chest radiograph 05/27/2014 FINDINGS: Normal cardiomediastinal contours. No acute infiltrate, pleural effusion or pneumothorax. No acute osseous abnormality. IMPRESSION: No acute cardiopulmonary process. Workstation ID: [id number] Dictated by: ROSA MONTES DE OCA on TueFeb 25, 2023 11:26:06 AM EST Transcribed by: ROSA MONTES DE OCA on TueFeb 25, 2023 11:26:06 AM EST Finalized by: ROSA MONTES DE OCA on TueFeb 25, 2023 11:26:06 AM EST Normal [facility] Comment on above: Order Comment: Injury/Trauma or Illness? :Illness/Other How long have you had these symptoms (acute/chronic)?:Acute Reason for exam?:cough Type of Exam?:Initial Additional signs and symptoms?:. RAPID STREP A ANTIGENon 11-19 S. pyogenes Ag Ql (Throat) Negative NEGATIVE [facility] Comment on above: STREP CULTURE TO FOLLOW TESTING PERFORMED BY [facility] Otheron 06-04-2020 1. Small right ankle joint effusion with no acute fracture or dislocation seen. If pain persists, repeat radiographs are recommended in 7-10 days. SH/jdw Workstation ID: [id number] [facility] EXAMINATION: XR ANKL E RIGHT 3+ VIEWS (STANDARD); XR FOOT RIGHT 3+ VIEWS (STANDARD) 06/04/2020 2:48 am HISTORY: ORDERING SYSTEM PROVIDED HISTORY: Pain/tenderness, TECHNOLOGIST PROVIDED HISTORY: Injury/Trauma Reason for exam: ankle pain Cancer History: Surgery, RadiationHistory: Encounter Type: Initial Mechanism of injury: twisted ankle ORDERING SYSTEM PROVIDED DIAGNOSIS CODES: COMPARISON: None. FINDINGS: Three views of the right ankle and three views of the right foot were obtained. There are a few small well corticated ossific densities at the tip of the right lateral malleolus which are likely related to remote trauma. No acute fracture or dislocation is seen. The ankle mortise is congruent. The joint spaces are preserved. There is a small right ankle joint effusion. [facility] Interface, Rad In Fu ji Speechq - 06/04/2020 3:57 AM EDT EXAMINATION: XR ANKLE RIGHT 3+ VIEWS (STANDARD); XR FOOT RIGHT 3+ VIEWS (STANDARD) 06/04/2020 2:48 am HISTORY: ORDERING SYSTEM PROVIDED HISTORY: Pain/tenderness, TECHNOLOGIST PROVIDED HISTORY: Injury/Trauma Reason for exam: ankle pain Cancer History: Surgery, RadiationHistory: Encounter Type: Initial Mechanism of injury: twisted ankle ORDERING SYSTEM PROVIDED DIAGNOSIS CODES: COMPARISON: None. FINDINGS: Three views of the right ankle and three views of the right foot were obtained. There are a few small well corticated ossific densities at the tip of the right lateral malleolus which are likely related to remote trauma. No acute fracture or dislocation is seen. The ankle mortise is congruent. The joint spaces are preserved. There is a small right ankle joint effusion. IMPRESSION: 1. Small right ankle joint effusion with no acute fracture or dislocation seen. If pain persists, repeat radiographs are recommended in 7-10 days. /jbuffy Workstation ID: [id number] [facility] NOVEL CORONAVIRUS NASOPHARYN GEAL - [facility] SPECIMEN ONLYon 04-28-2020 SARS-COV-2 NOT DETECTED Normal NOT DETECTED [facility] Comment on above: Order Comment: Submitter Name: [facility] Agent Suspected: SARS-COV-2 This test was performed using real time PCR and has been approved for the qualitative detection of SARS-CoV-2 nucleic acid. The test has been authorized by the FDA under an emergency use authorization for use by authorized laboratories. Result Comment: Nega tive results do not preclude SARS-CoV-2 infection and should not be used as the sole basis for treatment or other patient management decisions. Optimum specimen types and timing for peak viral levels during infections caused by SARS-CoV-2 has not been determined. The possibility of a false negative result should especially be considered if the patient's recent exposures or clinical presentation suggest that SARS-CoV-2 infection is probable, and diagnostic tests for other causes of illness (e.g., other respiratory illness) are negative. Collection of a new specimen and re-testing may be necessary if the patient is critically ill or clinically deteriorating. Performed By: #### L [id number] #### [facility] (DEFAULT) [address] [place] [address] CBC WITH AUTO DIFFERENTIALon 08-08-2019 Basophils (Bld) [#/Vol] 0.02 10*3/uL [facility] Basophils/100 WBC (Bld) 0.5 % [facility] Eosinophils (Bld) [#/Vol] 0.00 10*3/uL [facility] Eosinophils/100 WBC (Bld) 0.0 % [facility] Erythrocyte distribution width (RBC) [Entitic vol] 12.4 % 11.6 - 14.8 % [facility] Hematocrit (Bld) [Volume fraction] 46.3 % 41 - 53 % [facility] Hemoglobin (Bld) [Mass/Vol] 15.6 g/dL 13.5 - 17.5 g/dL [facility] Immature granulocytes (Bld) [#/Vol] 0.02 10*3/uL [facility] Immature granulocytes/100 WBC (Bld) 0.50 % [facility] Comment on above: The IG parameter is the percentage of me tamyelocytes, myelocytes and promyelocytes. An immature granulocyte count (IG) of 1% or more suggests the possibility of infection, an IG count of 3% is very likely related to an infection. Interpretation and review of laboratory results Abnormal [facility] Lymphocytes (Bld) [#/Vol] 0.61 10*3/uL Low [facility] Lymphocytes/100 WBC (Bld) 15.3 % [facility] MCH (RBC) [Entitic mass] 31.5 pg 26 - 34 pg [facility] MCHC (RBC) [Mass/Vol] 33.7 g/dL 31 - 37 g/dL [facility] MCV (RBC) [Entitic vol] 93.3 fL 80 - 100 fL [facility] Monocytes (Bld) [#/Vol] 0.47 10*3/uL [facility] Monocytes/100 WBC (Bld) 11.8 % [facility] Neutrophils (Bld) [#/Vol] 2.86 10*3/uL [facility] Neutrophils/100 WBC (Bld) 71.9 % [facility] Nucleated RBC (Bld) [#/Vol] 0.00 10*3/uL [facility] Nucleated RBC/100 WBC (Bld) [Ratio] 0.0 % [facility] Platelet mean volume (Bld) [Entitic vol] 11.4 fL 9.4 - 12.4 fL [facility] Platelets (Bld) [#/Vol] 138 10*3/uL Low [facility] RBC (Bld) [#/Vol] 4.96 10*6/uL [facility] WBC (Bld) [#/Vol] 3.98 10*3/uL Low [facility] COVID-19, Molecularon 2019 Interpretation and review of laboratory results Normal [facility] SARS-CoV-2 Not Detected Not Detected [facility] Comment on above: This test was performed under the FDA's Emergency Use Authorization (EUA). Testing was performed using the [employer] ID NOW COVID-19 assay on the ID NOW platform. This test has not been approved for use in asymptomatic patients and its performance in this patient population has not been evaluated. Negative results do not rule out the presence of SARS-CoV-2/COVID-19. Fact sheets for the EUA can be found at the following links: For Healthcare Providers: https://www.fda.gov/media/335643/download For Patients: https://www.fda.gov/media/087518/download Chem 08-08-2019 Anion gap [Moles/Vol] 11 mmol/L 10 - 20 mmol/L [facility] Chloride [Moles/Vol] 106 mmol/L 98 - 108 mmol/L [facility] Creatinine [Mass/Vol] 1.07 mg/dL 0.50 - 1.30 [facility] GFR/1.73 sq M predicted among non-blacks MDRD (S/P/Bld) [Vol rate/Area] The eGFR should be used for monitoring renal function only and not for medication dosing. [facility] sq M.predicted CKD-EPI (S/P/Bld) [Vol rate/Area] 96 >=60 mL/min/1.73 m2 [facility] Glucose [Mass/Vol] 100 mg/dL High 65 - 99 mg/dL [facility] HCO3 [Moles/Vol] 27 mmol/L 21 - 32 mmol/L [facility] Interpretation and review of laboratory results Abnormal [facility] Potassium [Moles/Vol] 3.6 mmol/L 3.5 - 5.1 mmol/L [facility] Sodium [Moles/Vol] 140 mmol/L 135 - 145 mmol/L [facility] Urea nitrogen [Mass/Vol] 18 mg/dL 8 - 25 mg/dL [facility] Urea nitrogen/Creatin ine [Mass ratio] 16.8 mg/mg [facility] Hepatic Function Panel (LFT) on 08-08-2019 Albumin [Mass/Vol] 4.0 g/dL 3.2 - 5.2 g/dL [facility] ALP [Catalytic activity/Vol] 69 U/L 40 - 140 U/L [facility] ALT [Catalytic activity/Vol] 23 U/L 14 - 65 U/L [facility] AST [Catalytic activity/Vol] 25 U/L 0 - 45 U/L [facility] Bilirubin [Mass/Vol] 0.9 mg/dL 0 - 1.3 mg/dL [facility] Bilirubin.conjug ated [Mass/Vol] 0.2 mg/dL 0 - 0.4 mg/dL [facility] Interpretation and review of laboratory results Normal [facility] Protein [Mass/Vol] 7.2 g/dL 6 - 8 g/dL [facility] Lipaseon 08-08-2019 Interpretation and review of laboratory results Normal [facility] Lipase [Catalytic activity/Vol] 78 U/L 73 - 393 U/L [facility] Otheron 08-08-2019 Extra Tube Hold for add-ons. [facility] Comment on above: Auto resulted. INFLUENZA A AND B, PCRon FLUBV Ag IA Ql (Unsp spec) Negative NEGATIVE [employer] Comment on above: TESTING PERFORMED BY [facility] INFLUENZA A Negative NEGATIVE [facility] FACIAL BONES W/O CONTRAST on 03-20-2017 CT FACIAL BONES W/O CONTRAST Final ReportAccession No: [id number] Performed: Mar 20 2017 7:41AMExamination: CT FACIAL BONES W/O CONTRASTEXAM: CT FACIAL BONES W/O CONTRASTCLINICAL STATEMENT: Pain and tenderness.COMPARISON: None.TECHNIQUE: ?CT examination of the facial bones?without IV contrast.Coronal andsagittal reformations were performed.Dose reduction techniques were achieved by using automated exposurecontroland/or adjustment of mA and/or kV according to patient size and/or use ofiterative reconstruction technique.FINDINGS: The frontal, left ethmoid, bilateral sphenoid, and leftmaxillarysinuses are clear. There is opacification of the posterior right ethmoidsinus.There is a 2.1 cm mucous retention cyst within the inferior rightmaxillarysinus. No air/fluid levels or bone destruction. No sinus expansion, volumeloss, sclerosis, or dehiscence. The ostiomeatal units are patent. Nasalseptumis deviated towards the right of midline. No periapical lucencies withinthemaxilla.The mastoid air cells and middle ear cavities are clear. No acutefracture ordislocation.The orbits and globes are unremarkable. The partially visualizedintracranialcontents are unremarkable. The nasopharynx, oropharynx, and hypopharynxareunremarkable. No discrete facial mass or fluid collection within thelimits ofnoncontrast CT.IMPRESSION:1. Opacification of the posterior right ethmoid sinus with a 2.1 cm rightmaxillary sinus mucous retention cyst. No air/fluid levels or bonedestruction.2. No acute fracture or dislocation.Interpreting Physician: KEESHA BROWN M.D.Trans: bminni : cc: Normal [facility] Vital Signs Date Time Vital Sign Value Performing Clinician Facility 08-26-2024 06:10-0400 Body mass index (BMI) [Ratio] 30.68 kg/m2 [employer] Work Phone: [facility] 08-26-2024 06:10-0400 Body weight 99.79 kg [employer] Work Phone: [facility] 08-26-2024 06:09-0400 Body temperature 98.6 [degF] [employer] Work Phone: [facility] 08-26-2024 06:09-0400 Diastolic blood pressure 69 mm[Hg] [employer] [facility] 08-26-2024 06:09-0400 Heart rate 90 /min [employer] [facility] 08-26-2024 06:09-0400 Respiratory rate 18 /min [employer] [facility] 08-26-2024 06:09-0400 SaO2% (BldA) [Mass fraction] 96 % [employer] [facility] 08-26-2024 06:09-0400 Systolic blood pressure 115 mm[Hg] [employer] [facility] 06-03-2024 21:17-0400 Diastolic blood pressure 88 mm[Hg] [facility] 06-03-2024 21:17-0400 Systolic blood pressure 157 mm[Hg] [facility] 06-03-2024 21:16-0400 Body height 180.3 cm [facility] 06-03-2024 21:16-0400 Body mass index (BMI) [Ratio] 32.08 kg/m2 [facility] 06-03-2024 21:16-0400 Body weight 104.33 kg [facility] 06-03-2024 21:15-0400 Body temperature 97.9 [degF] [facility] 06-03-2024 21:15-0400 Heart rate 83 /min [facility] 06-03-2024 21:15-0400 Respiratory rate 18 /min [facility] 06-03-2024 21:15-0400 SaO2% (BldA) [Mass fraction] 98 % [facility] 01-22-2024 19:39-0500 Diastolic blood pressure 62 mm[Hg] [facility] 01-22-2024 19:39-0500 Heart rate 81 /min [facility] 01-22-2024 19:39-0500 Respiratory rate 17 /min [facility] 01-22-2024 19:39-0500 SaO2% (BldA) [Mass fraction] 98 % [facility] 01-22-2024 19:39-0500 Systolic blood pressure 121 mm[Hg] [facility] 01-22-2024 18:04-0500 Body temperature 98.29 [degF] [facility] 01-22-2024 18:03-0500 Body height 180.3 cm [facility] 01-22-2024 18:03-0500 Body mass index (BMI) [Ratio] 36.26 kg/m2 [facility] 01-22-2024 18:03-0500 Body weight 117.94 kg [facility] 10-12-2023 22:47-0400 Body height 180.3 cm Krzysztof Byrne MD Work Phone: [facility] 10-12-2023 22:46-0400 Body temperature 97.9 [degF] Krzysztof Byrne MD Work Phone: [facility] 10-12-2023 22:46-0400 Diastolic blood pressure 73 mm[Hg] Krzysztof Byrne MD Work Phone: [facility] 10-12-2023 22:46-0400 Heart rate 70 /min Krzysztof Byrne MD Work Phone: [facility] 10-12-2023 22:46-0400 SaO2% (BldA) [Mass fraction] 97 % Krzysztof Byrne MD Work Phone: [facility] 10-12-2023 22:46-0400 Systolic blood pressure 119 mm[Hg] Krzysztof Byrne MD Work Phone: [facility] 07-21-2023 00:49-0400 Body height 180.3 cm Jose Miguel Tyler MD Work Phone: [facility] 07-21-2023 00:47-0400 Body temperature 97.5 [degF] Jose Miguel Tyler MD Work Phone: [facility] 07-21-2023 00:47-0400 Diastolic blood pressure 81 mm[Hg] Jose Miguel Tyler MD Work Phone: [facility] 07-21-2023 00:47-0400 Heart rate 76 /min Jose Miguel Tyler MD Work Phone: [facility] 07-21-2023 00:47-0400 Respiratory rate 18 /min Jose Miguel Tyler MD Work Phone: [facility] 07-21-2023 00:47-0400 SaO2% (BldA) [Mass fraction] 99 % Jose Miguel Tyler MD Work Phone: [facility] 07-21-2023 00:47-0400 Systolic blood pressure 137 mm[Hg] Jose Miguel Tyler MD Work Phone: [facility] 12-04-2022 23:45-0400 Diastolic blood pressure 68 mm[Hg] Gage Lyon MD Work Phone: [facility] 12-04-2022 23:45-0400 Heart rate 76 /min Gage Lyon MD Work Phone: [facility] 12-04-2022 23:45-0400 Respiratory rate 16 /min Gage Lyon MD Work Phone: [facility] 12-04-2022 23:45-0400 SaO2% (BldA) [Mass fraction] 98 % Gage Lyon MD Work Phone: [facility] 12-04-2022 23:45-0400 Systolic blood pressure 112 mm[Hg] Gage Lyon MD Work Phone: [facility] 12-04-2022 22:20-0400 Body height 182.9 cm Gage Lyon MD Work Phone: [facility] 12-04-2022 22:19-0400 Body temperature 98.4 [degF] Gage Lyon MD Work Phone: [facility] 06-04-2020 02:46-0400 BMI (Body Mass Index) 22.32 kg/m2 [facility] 06-04-2020 02:46-0400 Body weight 72.58 kg [facility] 06-04-2020 02:46-0400 Height 180.3 cm [facility] 06-04-2020 02:45-0400 Body Temperature 98.91 [degF] [facility] 06-04-2020 02:45-0400 BP Diastolic 67 mm[Hg] [facility] 06-04-2020 02:45-0400 BP Systolic 126 mm[Hg] [facility] 06-04-2020 02:45-0400 Pulse (Heart Rate) 90 /min [facility] 06-04-2020 02:45-0400 Pulse Oximetry 98 % [facility] 06-04-2020 02:45-0400 Respiratory Rate 18 /min [facility] 12-22-2019 10:50-0400 BP Diastolic 78 mm[Hg] Yasemin [facility] Comment on above: orthostatic vitals / kse 12-22-2019 10:50-0400 BP Systolic 116 mm[Hg] Yasemin Seals [facility] Comment on above: orthostatic vitals / kse 12-22-2019 10:50-0400 Pulse (Heart Rate) 84 /min Yasemin Seals [facility] Comment on above: orthostatic vitals / fle 12-22-2019 10:50-0400 Pulse Oximetry 97 % Yasemin Seals [facility] Comment on above: orthostatic vitals / fle 12-22-2019 10:50-0400 Respiratory Rate 16 /min Yasemin Seals [facility] Comment on above: orthostatic vitals / kse 12-22-2019 10:41-0400 BMI (Body Mass Index) 25.1 kg/m2 Yasemin Seals [facility] 12-22-2019 10:41-0400 Body Temperature 98.1 [degF] Yasemin Seals [facility] 12-22-2019 10:41-0400 Body weight 81.65 kg Yasemin Seals [facility] 12-22-2019 10:41-0400 Height 180.3 cm Yaseminchanell Seals [facility] 08-08-2019 11:30-0400 BP Diastolic 73 mm[Hg] [facility] 08-08-2019 11:30-0400 BP Systolic 121 mm[Hg] [facility] 08-08-2019 11:30-0400 Pulse Oximetry 99 % [facility] 08-08-2019 09:46-0400 BMI (Body Mass Index) 23.01 kg/m2 [facility] 08-08-2019 09:46-0400 Body Temperature 98.91 [degF] [facility] 08-08-2019 09:46-0400 Body weight 74.84 kg [facility] 08-08-2019 09:46-0400 Height 180.3 cm [facility] 08-08-2019 09:46-0400 Pulse (Heart Rate) 86 /min [facility] 08-08-2019 09:46-0400 Respiratory Rate 18 /min [facility] 05-23-2018 16:22-0500 Body Temperature 98.01 [degF] [employer] [facility] 05-23-2018 16:22-0500 BP Diastolic 69 mm[Hg] [employer] [facility] 05-23-2018 16:22-0500 BP Systolic 126 mm[Hg] [employer] [facility] 05-23-2018 16:22-0500 Height 175.3 cm [employer] 05-23-2018 16:22-0500 Pulse (Heart Rate) 87 /min [facility] [employer] 05-23-2018 16:22-0500 [facility] 99 % [facility] 16:22-0500 Respiratory Rate 20 /min [facility] [employer] 05-22-2018 13:58-0500 Height 180.3 [facility] 05-22-2018 13:57-0500 Body Temperature 97.3 [degF] [facility] [employer] 05-22-2018 13:57-0500 BP Diastolic 67 mm[Hg] [facility] [employer] 05-22-2018 13:57-0500 BP Systolic 109 mm[Hg] [facility]-22-[facility] 13:57-0500 Pulse (Heart Rate) 74 /min [facility] [employer] 05-22-2018 13:57-0500 Pulse Oximetry 98 % [facility] [employer] [facility] 05-22-2018 13:57-0500 Respiratory Rate 18 /min [facility] 02-27-2018 00:40-0500 Body Temperature 98.4 [degF] [facility] Work Phone: 02-27-2018 00:40-0500 BP Diastolic 73 mm[Hg] [facility] Work Phone: 02-27-2018 00:40-0500 BP Systolic 118 mm[Hg] [facility] Work Phone: 02-27-2018 00:40-0500 Pulse (Heart Rate) 70 /min [facility] Work Phone: 02-27-2018 00:40-0500 Pulse Oximetry 99 % [facility] Work Phone: 02-27-2018 00:40-0500 Respiratory Rate 18 /min [facility] Work Phone: Encounters Encounter Date Encounter Type Care Provider Facility Start: 11-09-2024 End: 11-09-2024 Emergency department patient visit YOU PHAN [facility] Start: 08-26-2024 End: 08-26-2024 Emergency department patient visit Dimitrios Zapata Work Phone: [facility] Start: 07-24-2024 ambulatory Health Risk Assessment Facility:[facility] Start: 07-10-2024 End: 07-10-2024 Emergency department patient visit KEESHA PADILLA [facility] Start: 07-01-2024 End: 07-01-2024 Emergency department patient visit VICTOR HUGO MORA [facility] Start: 06-03-2024 End: 06-03-2024 Emergency department patient visit [facility] Start: 01-22-2024 End: 01-22-2024 Emergency department patient visit GAGE LYON [facility] Start: 10-12-2023 End: 10-12-2023 Emergency department patient visit Krzysztof Byrne MD Work Phone: [facility] Start: 09-07-2023 End: 09-08-2023 Emergency department patient visit KRIS HERNANDEZ [facility] Start: 07-21-2023 End: 07-21-2023 Emergency department patient visit Jose Miguel Tyler MD Work Phone: [facility] Start: 07-20-2023 End: 07-21-2023 Emergency department patient visit [facility] Start: 07-04-2023 End: 07-05-2023 Emergency department patient visit [facility] Start: 02-25-2023 End: 02-25-2023 Emergency department patient visit [facility] Start: 12-04-2022 End: 12-04-2022 Emergency department patient visit Gage Lyon MD Work Phone: [facility] Start: 11-30-2022 End: 11-30-2022 Emergency department patient visit PACO WILKINS [facility] Start: 10-10-2021 ambulatory GAGE LYON [facility] Start: 06-04-2020 End: 06-04-2020 Emergency department patient visit Dedrick Tafoya Franky Work Phone: [facility] Start: 12-22-2019 End: 12-22-2019 Office outpatient visit 15 minutes Yasemin PadronChester Seals Work Phone: [facility] Comment on above: Vertigo, benign posi tional, unspecified laterality (Primary Dx) Start: 08-08-2019 End: 08-08-2019 Emergency department patient visit Jose Miguel Tyler Work Phone: [facility] Comment on above: Nausea vomiting and diarrhea (Primary Dx) Start: 09-01-2018 End: 09-01-2018 Outside Orders Historical Provider Mehreen SNOWDEN Start: 05-23-2018 End: 05-23-2018 Emergency department patient visit Edkristy [facility] Start: 05-22-2018 End: 05-22-2018 Emergency department patient visit Gage [facility] Start: 02-27-2018 End: 02-27-2018 Patient encounter procedure Provider Avtar [facility] Start: 02-27-2018 End: 02-27-2018 Emergency department patient visit Juan Jose Ramiro Work Phone: [facility] Start: 03-20-2017 End: 03-20-2017 Emergency department patient visit Isabel Meza Facility:[facility] Start: 03-20-2017 End: 03-20-2017 Emergency department patient visit Tank Donis Facility:[facility] Procedures Date Procedure Procedure Detail Performing Clinician Start: 08-26-2024 [facility] Dimitrios Zapata DO Work Phone: Start: 06-03-2024 [facility] strept[facility] a Keesha Padilla DO Work Phone: Start: 01-22-2024 Radiologic exam ches t single view Krys Beck [employer] Work Phone: Start: 12-04-2022 [facility] streptococ cus group a Deandra Prescott PA-C Work Phone: Start: 06-04-2020 X-ray of right foot Mar k Desean White Work Phone: Start: 06-04-2020 X-ray of right ankle Ma rk Desean White Work Phone: Start: 08-08-2019 Basic metabolic 1998 panel - Serum or Plasma Shyam Ortiz Work Phone: Start: 08-08-2019 Complete blood count with white cell differential, automated Shyam Ortiz Work Phone: Start: 08-08-2019 Complete blood count with white cell differential, manual Shyam Ortiz Work Phone: Start: 08-08-2019 Hepatic function 200 0 panel - Serum or Plasma Shyam Ortiz Work Phone: Start: 08-08-2019 LAVENDER TOP Shyam Ortiz Work Phone: Start: 08-08-2019 LIGHT BLUE TOP Shyam Ortiz Work Phone: Start: 08-08-2019 LIGHT GREEN TOP Shyam Ortiz Work Phone: Start: 08-08-2019 Lipase [Enzymatic activity/volume] in Serum or Plasma Shyam Ortiz Work Phone: Start: 08-08-2019 MINT GREEN TOP Shyam Ortiz Work Phone: Start: 08-08-2019 RAINBOW DRAW Shyam Ortiz Work Phone: Start: 08-08-2019 COVID-19, MOLECULAR Fly Ortiz Work Phone: Start: 09-01-2018 LABS (OUTSIDE) Historic al Provider Start: 05-23-2018 INFLUENZA A AND B, PCR Ariane Rosas Work Phone: Plan of Treatment Date Care Activity Detail Author Start: 11-19-2024 Influenza vaccination INFLUENZ A VACCINE (Season Ended) [facility] Start: 11-20-2023 COVID-19 VACCINE ( season) COVID-19 VACCINE ( season) [facility] Start: 11-20-2023 Influenza vaccination A [facility] Start: 09-11-2023 Tetanus vaccination TETANUS [facility] Start: 11-19-2022 COVID-19 VACCINE ( season) COVID-19 VACCINE ( season) [facility] Start: 11-19-2022 Influenza vaccination INFLUENZA VACC INE (#1) [facility] Start: 11-20-2019 Influenza vaccinatio n given Sequential Influenza Vaccine (#1) [facility] Start: 11-19-2018 Influenza vaccination [facility]FLU[facility] A VACCINE (Season Ended) [facility] Start: 11-19-2017 Influenza vaccination INFLUENZA VACC INE (#1) [facility] Work Phone: Start: 2012 Third diphtheria, tetanus and acellular pertussis (DTaP) vaccination TDAP (ADULT) [facility] Work Phone: Start: 09-30-2011 Hepatitis C antibody , confirmatory test Hepatitis C Screening [facility] Start: 09-30-2011 Tetanus vaccination TETANUS [facility] Work Phone: Start: 2009 COVID-19 Vaccine (1 of 2) COVID-19 Vaccine (1 of 2) [facility] Start: 2008 HIV screening [facility] Start: 2006 HIV screening HIV SCREENING DISCUSSION [facility] Work Phone: Start: 2005 Adolescent depressio n screening assessment Depression Screening (PHQ9) [facility] Start: 1996 History and physical examination, annual for health maintenance Wellness Visit [facility] Start: 04-01-1994 COVID-19 VACCINE (#1) COVID-19 VACCI NE (#1) [facility] Start: 04-01-1994 Hepatitis B vaccination HEP B VACCINE (3 of 3 - 3-dose series) [facility] Start: 1993 Tetanus vaccination Tetanus: Every 1 0yrs [facility] End: 12-04-2022 Throat [facility] Work Phone: Comment on above: One Time for 1 Occur rences starting 12/04/2022 until 12/04/2022 End: 06-03-2024 [facility] Work Phone: Comment on above: One Time for 1 Occur rences starting 06/03/2024 until 06/03/2024 End: 08-26-2024 [facility] Comment on above: One Time for 1 Occur rences starting 08/26/2024 until 08/26/2024 Payers Date Payer Category Payer Self-pay 2019 Medicaid (Managed Care) [employer] [id number] 2019 Medicaid VICKRAGHAV DIEGO [place] [employer] [place] [id number] 2019-Present [id number] 2019 Medicaid [id number] 2019 Unknown [id number] 2018 Unknown [id number] 1993 Unknown [id number]. 903 1993 Unknown [id number]. 903 1993 Unknown [id number]. 903 1993 Unknown [id number] [id number]. 903 1993 Unknown [id number] [id number]. 903 1993 Unknown [id number] [id number]. 903 1993 Unknown [id number] [id number]. 983 1993 Unknown [id number] [id number]. 983 1993 Unknown [id number] [id number]. 983 1993 Unknown [id number] [id number]. 983 1993 Unknown [id number] [id number]. 983 1993 Unknown [id number] [id number]. 983 1993 Unknown [id number] [id number]. 902 1993 Unknown [id number]. 902 Unknown [id number] Social History Date Type Detail Facility Start: 02-27-2018 End: 12-04-2022 Tobacco smoking status NHIS Former smoker [facility] History of tobacco use Cigarette Smoker [facility] Work Phone: Start: 1993 Sex Assigned At Not on file [facility] Work Phone: Start: 06-28-2017 Alcohol Comment rare [facility] Start: 08-08-2019 End: 06-03-2024 Tobacco smoking status NHIS Never smoker [facility] Start: 08-08-2019 Alcohol intake Lifetime non-d leonor (finding) [facility] Start: 08-08-2019 History SDOH Alcohol Frequency 1 [facility] Exposure to SARS-CoV -2 (event) Not sure [facility] Start: 12-22-2019 End: 06-03-2024 Tobacco use and exposure Never used [facility] Start: 12-22-2019 End: 08-26-2024 Alcohol intake Current drinker of alcohol (finding) [facility] Start: 12-22-[address] [facility] History of tobacco use Current smoker [facility] Start: 12-04-2022 End: 08-26-2024 History of Social function [facility] Start: 12-04-2022 End: 08-26-2024 Tobacco use panel [facility] Gender identity Identifies as ma le gender (finding) [facility] Start: 03-26-2016 Sex Male (finding) [facility] Clinical Notes 12-04-2022 to 08-26-2024 Valerie Johnson RN - 08/26/2024 7:07 AM Iglesia Johnson RN - 08/26/2024 7:07 AM Romero Zapata DO - 08/26/2024 6:28 AM Kathy Joseph RN - 08/26/2024 6:27 AM EDTDischarge Instructions Note Date & Type Note Facility 08-26-2024 Emergency departm ent Note PT SITTING ON BED, NO DISTRESS, DC GIVEN [facility] 08-26-2024 Emergency departm ent Note PT SITTING ON BED, NO DISTRESS, DC GIVEN Emergency Department Report [facility] Service Date:.08/26/24 PCP: No primary care provider on file. Chief Complaint: Chief Complaint Patient presents with Sore Throat HPI Landry Durham is a 28 y.o. male presents to the ED today due to patient presents to emergency room secondary to sore throat. Patient says this is gone on for 5 days. Patient eating and drinking well otherwise. No reports fever or rash. No abdominal pain. No nausea or vomiting. Review of Systems: Review of Systems Constitutional: Negative for fever. HENT: Positive for sore throat. Eyes: Negative for visual disturbance. Respiratory: Negative for cough and shortness of breath. Cardiovascular: Negative for chest pain. Gastrointestinal: Negative for abdominal pain. Endocrine: Negative for polyuria. Genitourinary: Negative for dysuria. Musculoskeletal: Negative for back pain. Skin: Negative for rash. Past Medical History: Past Medical History: Diagnosis Date Heart beat abnormality pt reports having a increased heart beat due to past infection Past Surgical History: Past Surgical History: Procedure Laterality Date TONSILLECTOMY Allergies: No Known Allergies Medications: Patient's Medications New Prescriptions No medications on file Previous Medications BENZONATATE 200 MG CAP CAPSULE Take 0.5 capsules by mouth 3 times daily as needed for Cough. CETIRIZINE 10 MG TABLET Take 1 tablet by mouth daily. CIPROFLOXACIN-DEXAMETHASONE 0.3-0.1 % SUSPENSION OTIC SUSPENSION 4 drops Twice daily. FLUTICASONE 50 MCG/ACT SUSPENSION NASAL SPRAY 2 sprays each nostril daily IBUPROFEN 600 MG TAB TABLET Take 1 tablet by mouth every 8 hours as needed for Moderate Pain or Severe Pain. PREDNISONE 10 MG (21) TAB THERAPY PACK Take 6 pills on day 1, then 5, 4, 3, 2 and 1 each day sequentially [id number] EXTROMETHORPHAN 30-2-10 MG/5ML SYRUP Take 5-10 mL by mouth every 8 hours as needed. Modified Medications No medications on file Discontinued Medications No medications on file Family History: Family History Problem Relation Age of Onset Diabetes Paternal Grandfather Social History: Social History Socioeconomic History Marital status: Single Spouse name: Not on file Number of children: Not on file Years of education: Not on file Highest education level: Not on file Occupational History Not on file Tobacco Use Smoking status: Never Smokeless tobacco: Never Vaping Use Vaping status: Never Used Substance and Sexual Activity Alcohol use: Yes Comment: rare Drug use: No Sexual activity: Yes Partners: Female Other Topics Concern Not on file Social History Narrative Not on file Social Drivers of Health Financial Resource Strain: Not on file Food Insecurity: Not on file Transportation Needs: Not on file Physical Activity: Not on file Stress: Not on file Social Connections: Not on file Personal Safety: Not on file Housing Stability: Not on file Physical Exam: Physical Exam Vitals and nursing note reviewed. Constitutional: Appearance: Normal appearance. He is normal weight. HENT: Head: Normocephalic and atraumatic. Nose: Nose normal. Mouth/Throat: Mouth: Mucous membranes are moist. Pharynx: Oropharynx is clear. Uvula midline. No pharyngeal swelling, oropharyngeal exudate, posterior oropharyngeal erythema or uvula swelling. Tonsils: No tonsillar exudate or tonsillar abscesses. Eyes: General: Lids are normal. Vision grossly intact. Cardiovascular: Rate and Rhythm: Normal rate and regular rhythm. Heart sounds: Normal heart sounds. Pulmonary: Effort: Pulmonary effort is normal. Breath sounds: Normal breath sounds and air entry. No decreased breath sounds, wheezing, rhonchi or rales. Abdominal: General: Bowel sounds are normal. Palpations: Abdomen is soft. Tenderness: There is no abdominal tenderness. Musculoskeletal: Cervical back: Full passive range of motion without pain and neck supple. Right lower leg: No edema. Left lower leg: No edema. Skin: General: Skin is warm. Capillary Refill: Capillary refill takes less than 2 seconds. Neurological: General: No focal deficit present. Mental Status: He is alert and oriented to person, place, and time. Mental status is at baseline. GCS: GCS eye subscore is 4. GCS verbal subscore is 5. GCS motor subscore is 6. Cranial Nerves: Cranial nerves 2-12 are intact. Sensory: Sensation is intact. Motor: Motor function is intact. Vital Signs During ED Visit Patient Vitals for the past 24 hrs: BP Temp Temp src Pulse Resp SpO2 Weight 08/26/24 0610 -- -- -- -- -- -- 99.8 kg (220 lb) 08/26/24 0609 115/69 98.6 F (37 C) Oral 90 18 96 % -- Orders/Results: Orders Placed This Encounter RAPID STREP A ANTIGEN Results for orders placed or performed during the hospital encounter of 06/08/25 RAPID STREP A ANTIGEN Result Value Ref Range RAPID STREP, GROUP A NEGATIVE NEGATIVE EKG: Radiographic Imaging No orders to display Procedures: Procedures Moderate Sedation Procedure: No ED Summary/MDM Landry Durham is a 28 y.o. male presents to the ED today due to patient presents to emergency room secondary to sore throat. Patient says this is gone on for 5 days. Patient eating and drinking well otherwise. No reports fever or rash. No abdominal pain. No nausea or vomiting. Patient had fluent speech. Tolerating secretions well. No trismus. Throat pink and moist no erythema or exudates. Uvula midline. Rapid strep was negative. Patient aware of strep culture. Appropriate instructions and precautions given. Patient understands the above. Patient discharged in good condition. UPDATE: Clinical Impression: 1. Sore throat No follow-ups on file. New Prescriptions No medications on file Discontinued Medications No medications on file An After Visit Summary was printed and given to the patient with above information. . Documentation of this medical record was completed via electronic dictation system which may contain typographical, mispronunciation, and grammatical errors. PLEASE EXCUSE SUCH ERRORS IF WAS NOT NOTED OR CORRECTED . Dimitrios Zapata DO 08/26/2446 Dr. Zapata bedside Reports sore throat x 1 week. documented in this encounter [facility] 08-26-2024 Hospital Discharg e instructions Dimitrios Zapata DO - 08/26/2024 6:46 AM EDT Increase fluid intake. Return if any problems or worsening symptoms. The following attachments cannot be sent through Care Everywhere.Sore Throat (Samoan)documented in this encounter [facility] 08-26-2024 Physician Emergen cy department Note Emergency Department Report [facility] Service Date:.08/26/24 PCP: No primary care provider on file. Chief Complaint: Chief Complaint Patient presents with Sore Throat HPI Landry Durham is a 28 y.o. male presents to the ED today due to patient presents to emergency room secondary to sore throat. Patient says this is gone on for 5 days. Patient eating and drinking well otherwise. No reports fever or rash. No abdominal pain. No nausea or vomiting. Review of Systems: Review of Systems Constitutional: Negative for fever. HENT: Positive for sore throat. Eyes: Negative for visual disturbance. Respiratory: Negative for cough and shortness of breath. Cardiovascular: Negative for chest pain. Gastrointestinal: Negative for abdominal pain. Endocrine: Negative for polyuria. Genitourinary: Negative for dysuria. Musculoskeletal: Negative for back pain. Skin: Negative for rash. Past Medical History: Past Medical History: Diagnosis Date Heart beat abnormality pt reports having a increased heart beat due to past infection Past Surgical History: Past Surgical History: Procedure Laterality Date TONSILLECTOMY Allergies: No Known Allergies Medications: Patient's Medications New Prescriptions No medications on file Previous Medications BENZONATATE 200 MG CAP CAPSULE Take 0.5 capsules by mouth 3 times daily as needed for Cough. CETIRIZINE 10 MG TABLET Take 1 tablet by mouth daily. CIPROFLOXACIN-DEXAMETHASONE 0.3-0.1 % SUSPENSION OTIC SUSPENSION 4 drops Twice daily. FLUTICASONE 50 MCG/ACT SUSPENSION NASAL SPRAY 2 sprays each nostril daily IBUPROFEN 600 MG TAB TABLET Take 1 tablet by mouth every 8 hours as needed for Moderate Pain or Severe Pain. PREDNISONE 10 MG (21) TAB THERAPY PACK Take 6 pills on day 1, then 5, 4, 3, 2 and 1 each day sequentially [id number] EXTROMETHORPHAN 30-2-10 MG/5ML SYRUP Take 5-10 mL by mouth every 8 hours as needed. Modified Medications No medications on file Discontinued Medications No medications on file Family History: Family History Problem Relation Age of Onset Diabetes Paternal Grandfather Social History: Social History Socioeconomic History Marital status: Single Spouse name: Not on file Number of children: Not on file Years of education: Not on file Highest education level: Not on file Occupational History Not on file Tobacco Use Smoking status: Never Smokeless tobacco: Never Vaping Use Vaping status: Never Used Substance and Sexual Activity Alcohol use: Yes Comment: rare Drug use: No Sexual activity: Yes Partners: Female Other Topics Concern Not on file Social History Narrative Not on file Social Drivers of Health Financial Resource Strain: Not on file Food Insecurity: Not on file Transportation Needs: Not on file Physical Activity: Not on file Stress: Not on file Social Connections: Not on file Personal Safety: Not on file Housing Stability: Not on file Physical Exam: Physical Exam Vitals and nursing note reviewed. Constitutional: Appearance: Normal appearance. He is normal weight. HENT: Head: Normocephalic and atraumatic. Nose: Nose normal. Mouth/Throat: Mouth: Mucous membranes are moist. Pharynx: Oropharynx is clear. Uvula midline. No pharyngeal swelling, oropharyngeal exudate, posterior oropharyngeal erythema or uvula swelling. Tonsils: No tonsillar exudate or tonsillar abscesses. Eyes: General: Lids are normal. Vision grossly intact. Cardiovascular: Rate and Rhythm: Normal rate and regular rhythm. Heart sounds: Normal heart sounds. Pulmonary: Effort: Pulmonary effort is normal. Breath sounds: Normal breath sounds and air entry. No decreased breath sounds, wheezing, rhonchi or rales. Abdominal: General: Bowel sounds are normal. Palpations: Abdomen is soft. Tenderness: There is no abdominal tenderness. Musculoskeletal: Cervical back: Full passive range of motion without pain and neck supple. Right lower leg: No edema. Left lower leg: No edema. Skin: General: Skin is warm. Capillary Refill: Capillary refill takes less than 2 seconds. Neurological: General: No focal deficit present. Mental Status: He is alert and oriented to person, place, and time. Mental status is at baseline. GCS: GCS eye subscore is 4. GCS verbal subscore is 5. GCS motor subscore is 6. Cranial Nerves: Cranial nerves 2-12 are intact. Sensory: Sensation is intact. Motor: Motor function is intact. Vital Signs During ED Visit Patient Vitals for the past 24 hrs: BP Temp Temp src Pulse Resp SpO2 Weight 08/26/24 0610 -- -- -- -- -- -- 99.8 kg (220 lb) 08/26/24 0609 115/69 98.6 F (37 C) Oral 90 18 96 % -- Orders/Results: Orders Placed This Encounter RAPID STREP A ANTIGEN Results for orders placed or performed during the hospital encounter of 08/26/24 RAPID STREP A ANTIGEN Result Value Ref Range RAPID STREP, GROUP A NEGATIVE NEGATIVE EKG: Radiographic Imaging No orders to display Procedures: Procedures Moderate Sedation Procedure: No ED Summary/MDM Landry Durham is a 28 y.o. male presents to the ED today due to patient presents to emergency room secondary to sore throat. Patient says this is gone on for 5 days. Patient eating and drinking well otherwise. No reports fever or rash. No abdominal pain. No nausea or vomiting. Patient had fluent speech. Tolerating secretions well. No trismus. Throat pink and moist no erythema or exudates. Uvula midline. Rapid strep was negative. Patient aware of strep culture. Appropriate instructions and precautions given. Patient understands the above. Patient discharged in good condition. UPDATE: Clinical Impression: 1. Sore throat No follow-ups on file. New Prescriptions No medications on file Discontinued Medications No medications on file An After Visit Summary was printed and given to the patient with above information. . Documentation of this medical record was completed via electronic dictation system which may contain typographical, mispronunciation, and grammatical errors. PLEASE EXCUSE SUCH ERRORS IF WAS NOT NOTED OR CORRECTED . Dimitrios Zapaat DO 08/26/24 0646 [facility] 08-26-2024 Emergency [facility] ent Note Dr. Zapata bedside [facility] 08-26-2024 Emergency [facility] ent Note Reports sore throat x 1 week. [facility] 01-22-2024 Emergency [facility] ent Note Discharge instructions reviewed with patient. Patient educated on where to [facility] prescription medication(s), pain/symptom management, and follow up. Patient verbalized understanding. No further questions at this time. Patient declined assistance to vehicle. Patient ambulated out of ER with steady gait and in stable condition. [facility] 01-22-2024 Emergency departm ent Note Discharge instructions reviewed with patient. Patient educated on where to [facility] prescription medication(s), pain/symptom management, and follow up. Patient verbalized understanding. No further questions at this time. Patient declined assistance to vehicle. Patient ambulated out of ER with steady gait and in stable condition. documented in this encounter [facility] 01-22-2024 Hospital Discharg e instructions SHEILA Lawson - 01/22/2024 7:34 PM EST You were seen and evaluated today for cough and congestion. As we discussed, you are stable for discharge home with follow-up with primary care. There are no immediate, life-threatening causes for your symptoms at this time. Symptoms can change and new problems may arise after your evaluation. Please do not hesitate to return for further care. Finish antibiotics. Take steroid taper as prescribed. Use Flonase nasal spray and allergy medication daily to reduce allergies and drainage. Monitor for any worsening or more concerning symptoms. Take usual prescribed medications as prescribed. Alternate Tylenol and ibuprofen as needed for pain or fevers. Call primary care to schedule a follow-up appointment reevaluation. Return to the emergency room if you develop any of the following conditions: altered mental status, confusion, dizziness, passing out, severe sustained headache, inability to swallow, changes in vision, changes in hearing, difficulty or pain with swallowing, shortness of breath, high pitched wheezing, fevers above 102, elevated heart rate, chest pain, persistent vomiting, and inability to control urine or stool, or any other abnormal symptoms of concern. The following attachments cannot be sent through Care Everywhere.Allergies: Seasonal (Samoan)Rhinitis (Samoan)Cough (Samoan)documented in this encounter [facility] 10-12-2023 Emergency departm ent Note Pt provided with discharge summary and informed of faxed medications to pharmacy of choice, home pack medication education provided including following up with dentist. Dental resource sheet provided, pt verbalizes understanding and denies questions, pt ambulates from this ED with steady gait at this time. [facility] 10-12-2023 Emergency departm ent Note Pt provided with discharge summary and informed of faxed medications to pharmacy of choice, home pack medication education provided including following up with dentist. Dental resource sheet provided, pt verbalizes understanding and denies questions, pt ambulates from this ED with steady gait at this time. Take home pack given to patient, verified with Dr. Byrne , and medication education provided. Dr. Byrne bedside Pt reports left sided lower jaw pain that radiates to the left top jaw that started today, pt reports known abscess tooth on left lower jaw and taking an old prescribed amoxicillin and ibuprofen with no relief. Pt states he does have an established dentist but can't be seen until infection has cleared up. VSS, pt sitting on cot, visitor bedside, call light within reach documented in this encounter [facility] 10-12-2023 Emergency departm ent Note Take home pack given to patient, verified with Dr. Byrne , and medication education provided. [facility] 10-12-[address] ent Note Dr. Byrne bedside [facility] 10-12-2023 Emergency departm ent Note Pt reports left sided lower jaw pain that radiates to the left top jaw that started today, pt reports known abscess tooth on left lower jaw and taking an old prescribed amoxicillin and ibuprofen with no relief. Pt states he does have an established dentist but can't be seen until infection has cleared up. VSS, pt sitting on cot, visitor bedside, call light within reach [facility] 07-21-2023 Hospital Discharg e instructions Jose Miguel Tyler MD - 07/21/2023 12:52 AM EDT Please fill prescriptions. The following attachments cannot be sent through Care Everywhere.Tooth: Abscessed (Samoan)documented in this encounter [facility] 12-04-2022 Physician Emergen cy department Note Emergency Department Report [facility] EMERGENCY DEPARTMENT Service Date:.12/04/22 PCP: Gage Lyon Chief Complaint: Chief Complaint Patient presents with Nasal Congestion Pt states nasal congestion for past 1-2 weeks. NO relief with OTC meds nasal spray, mucinex. Pt has frequent cough, states difficulty swallowing, able to keep food and fluids dowm. No n/v. No sore throat. HPI Landry Durham is a 27 y.o. male. History is obtained from the patient. Patient states last 1-2 weeks he is had nasal congestion and drainage. He states he is a sore throat and is afraid it might be strep throat. States he does cough intermittently. He is had no fevers chills no vomiting no diarrhea. He states he has intermittent pain in his right ear as well.. Review of Systems: Review of Systems Review of Systems negative other than stated in the HPI Past Medical History: Past Medical History: Diagnosis Date Heart beat abnormality pt reports having a increased heart beat due to past infection Past Surgical History: Past Surgical History: Procedure Laterality Date TONSILLECTOMY Allergies: No Known Allergies Medications: Patient's Medications New Prescriptions No medications on file Previous Medications BENZONATATE 200 MG CAP CAPSULE Take 0.5 capsules by mouth 3 times daily as needed for Cough. CIPROFLOXACIN-DEXAMETHASONE 0.3-0.1 % SUSPENSION OTIC SUSPENSION 4 drops Twice daily. FEXOFENADINE-PSEUDOEPHEDRINE 180-240 MG TAB SR 24 HR Take 1 tablet by mouth daily. FLUTICASONE 50 MCG/ACT SUSPENSION NASAL SPRAY 2 sprays by Nasal route daily. IBUPROFEN 600 MG TAB TABLET Take 1 tablet by mouth every 8 hours as needed for Moderate Pain or Severe Pain. Modified Medications No medications on file Discontinued Medications No medications on file Family History: Family History Problem Relation Age of Onset Diabetes Paternal Grandfather Social History: Social History Socioeconomic History Marital status: Single Spouse name: Not on file Number of children: Not on file Years of education: Not on file Highest education level: Not on file Occupational History Not on file Tobacco Use Smoking status: Former Types: Cigarettes Smokeless tobacco: Never Vaping Use Vaping Use: Never used Substance and Sexual Activity Alcohol use: Yes Comment: rare Drug use: No Sexual activity: Not on file Other Topics Concern Not on file Social History Narrative Not on file Social Determinants of Health Financial Resource Strain: Not on file Food Insecurity: Not on file Transportation Needs: Not on file Physical Activity: Not on file Stress: Not on file Social Connections: Not on file Intimate Partner Violence: Not on file Housing Stability: Not on file Physical Exam: Physical Exam Vitals and nursing note reviewed. Constitutional: Appearance: Normal appearance. HENT: Head: Normocephalic and atraumatic. Right Ear: Tympanic membrane normal. Left Ear: Tympanic membrane normal. Nose: Congestion and rhinorrhea present. Mouth/Throat: Mouth: Mucous membranes are moist. Pharynx: Posterior oropharyngeal erythema present. No oropharyngeal exudate. Eyes: Conjunctiva/sclera: Conjunctivae normal. Cardiovascular: Rate and Rhythm: Normal rate and regular rhythm. Pulmonary: Effort: Pulmonary effort is normal. No respiratory distress. Breath sounds: Normal breath sounds. No wheezing. Abdominal: General: There is no distension. Palpations: Abdomen is soft. Tenderness: There is no abdominal tenderness. Musculoskeletal: General: No deformity or signs of injury. Normal range of motion. Cervical back: Normal range of motion and neck supple. No tenderness. Lymphadenopathy: Cervical: No cervical adenopathy. Skin: Findings: No rash. Neurological: General: No focal deficit present. Mental Status: He is alert and oriented to person, place, and time. Cranial Nerves: No cranial nerve deficit. Motor: No weakness. Coordination: Coordination normal. Psychiatric: Behavior: Behavior normal. Thought Content: Thought content normal. Judgment: Judgment normal. Vital Signs During ED Visit Patient Vitals for the past 24 hrs: BP Temp Temp src Pulse Resp SpO2 Height 12/04/22 2220 -- -- -- -- -- -- 1.829 m (6') 12/04/22 2219 116/71 98.4 F (36.9 C) Oral 79 16 98 % -- Orders/Results: Results for orders placed or performed during the hospital encounter of 12/04/22 RAPID STREP A ANTIGEN Result Value Ref Range RAPID STREP, GROUP A NEGATIVE NEGATIVE Radiographic Imaging No orders to display Procedures: Procedures Moderate Sedation Procedure: No ED Summary/MDM Patient has been quite stable here in the emergency room. He is playing on his phone. His rapid strep test was negative this will be sent for culture. I do not feel that his ear pain represents an ear infection at this time he states it does not hurt all the time just kind of intermittently. I would hold off on antibiotics. He states he is actually already taking guaifenesin and 2 nasal sprays from [facility]. He can continue on these and follow up with his family doctor. If he has changing worsening or developing symptoms of any kind can return for re-evaluation. Clinical Impression: 1. Acute pharyngitis, unspecified etiology No follow-ups on file. New Prescriptions No medications on file Discontinued Medications No medications on file An After Visit Summary was printed and given to the patient with above information. Deandra Prescott PA-C [facility] Emergency Department [place], [place] . . Deandra Prescott PA-C 12/04/22 9099 [facility] 12-04-2022 Emergency departm ent Note Emergency Department Report [facility] EMERGENCY [facility]PARTMENT Service Date:.12/04/22 PCP: Gage Lyon Chief Complaint: Chief Complaint Patient presents with Nasal Congestion Pt states nasal congestion for past 1-2 weeks. NO relief with OTC meds nasal spray, mucinex. Pt has frequent cough, states difficulty swallowing, able to keep food and fluids dowm. No n/v. No sore throat. HPI Landry Durham is a 27 y.o. male. History is obtained from the patient. Patient states last 1-2 weeks he is had nasal congestion and drainage. He states he is a sore throat and is afraid it might be strep throat. States he does cough intermittently. He is had no fevers chills no vomiting no diarrhea. He states he has intermittent pain in his right ear as well.. Review of Systems: Review of Systems Review of Systems negative other than stated in the HPI Past Medical History: Past Medical History: Diagnosis Date Heart beat abnormality pt reports having a increased heart beat due to past infection Past Surgical History: Past Surgical History: Procedure Laterality Date TONSILLECTOMY Allergies: No Known Allergies Medications: Patient's Medications New Prescriptions No medications on file Previous Medications BENZONATATE 200 MG CAP CAPSULE Take 0.5 capsules by mouth 3 times daily as needed for Cough. CIPROFLOXACIN-DEXAMETHASONE 0.3-0.1 % SUSPENSION OTIC SUSPENSION 4 drops Twice daily. FEXOFENADINE-PSEUDOEPHEDRINE 180-240 MG TAB SR 24 HR Take 1 tablet by mouth daily. FLUTICASONE 50 MCG/ACT SUSPENSION NASAL SPRAY 2 sprays by Nasal route daily. IBUPROFEN 600 MG TAB TABLET Take 1 tablet by mouth every 8 hours as needed for Moderate Pain or Severe Pain. Modified Medications No medications on file Discontinued Medications No medications on file Family History: Family History Problem Relation Age of Onset Diabetes Paternal Grandfather Social History: Social History Socioeconomic History Marital status: Single Spouse name: Not on file Number of children: Not on file Years of education: Not on file Highest education level: Not on file Occupational History Not on file Tobacco Use Smoking status: Former Types: Cigarettes Smokeless tobacco: Never Vaping Use Vaping Use: Never used Substance and Sexual Activity Alcohol use: Yes Comment: rare Drug use: No Sexual activity: Not on file Other Topics Concern Not on file Social History Narrative Not on file Social Determinants of Health Financial Resource Strain: Not on file Food Insecurity: Not on file Transportation Needs: Not on file Physical Activity: Not on file Stress: Not on file Social Connections: Not on file Intimate Partner Violence: Not on file Housing Stability: Not on file Physical Exam: Physical Exam Vitals and nursing note reviewed. Constitutional: Appearance: Normal appearance. HENT: Head: Normocephalic and atraumatic. Right Ear: Tympanic membrane normal. Left Ear: Tympanic membrane normal. Nose: Congestion and rhinorrhea present. Mouth/Throat: Mouth: Mucous membranes are moist. Pharynx: Posterior oropharyngeal erythema present. No oropharyngeal exudate. Eyes: Conjunctiva/sclera: Conjunctivae normal. Cardiovascular: Rate and Rhythm: Normal rate and regular rhythm. Pulmonary: Effort: Pulmonary effort is normal. No respiratory distress. Breath sounds: Normal breath sounds. No wheezing. Abdominal: General: There is no distension. Palpations: Abdomen is soft. Tenderness: There is no abdominal tenderness. Musculoskeletal: General: No deformity or signs of injury. Normal range of motion. Cervical back: Normal range of motion and neck supple. No tenderness. Lymphadenopathy: Cervical: No cervical adenopathy. Skin: Findings: No rash. Neurological: General: No focal deficit present. Mental Status: He is alert and oriented to person, place, and time. Cranial Nerves: No cranial nerve deficit. Motor: No weakness. Coordination: Coordination normal. Psychiatric: Behavior: Behavior normal. Thought Content: Thought content normal. Judgment: Judgment normal. Vital Signs During ED Visit Patient Vitals for the past 24 hrs: BP Temp Temp src Pulse Resp SpO2 Height 12/04/22 2220 -- -- -- -- -- -- 1.829 m (6') 12/04/22 2219 116/71 98.4 F (36.9 C) Oral 79 16 98 % -- Orders/Results: Results for orders placed or performed during the hospital encounter of 12/04/22 RAPID STREP A ANTIGEN Result Value Ref Range RAPID STREP, GROUP A NEGATIVE NEGATIVE Radiographic Imaging No orders to display Procedures: Procedures Moderate Sedation Procedure: No ED Summary/MDM Patient has been quite stable here in the emergency room. He is playing on his phone. His rapid strep test was negative this will be sent for culture. I do not feel that his ear pain represents an ear infection at this time he states it does not hurt all the time just kind of intermittently. I would hold off on antibiotics. He states he is actually already taking guaifenesin and 2 nasal sprays from [facility]. He can continue on these and follow up with his family doctor. If he has changing worsening or developing symptoms of any kind can return for re-evaluation. Clinical Impression: 1. Acute pharyngitis, unspecified etiology No follow-ups on file. New Prescriptions No medications on file Discontinued Medications No medications on file An After Visit Summary was printed and given to the patient with above information. Deandra Prescott PA-C [facility] Emergency Department [place], [place] . . Deandra Prescott PA-C 12/04/22 2326 documented in this encounter [facility] Evaluation note Diagnosis Acute pharyngitis, unspecified etiology- Primary [facility] Diagnosis Dental infection- Primary Acute apical periodontitis of pulpal origin [facility] Diagnosis Pain, dental- Primary Unspecified disorder of the teeth and supporting structures [facility] Diagnosis Respiratory tract congestion with cough- Primary Allergic rhinitis, unspecified seasonality, unspecified trigger [facility] Diagnosis Acute upper respiratory infection- Primary Acute upper respiratory infections of unspecified site Acute pharyngitis, unspecified etiology [facility] Diagnosis Sore throat- Primary Acute pharyngitis [facility]* Attachments The following attachments cannot be sent through Care Everywhere. * Sore Throat (Samoan) [facility]* Attachments The following attachments cannot be sent through Care Everywhere. * Tooth and Gum Pain (Samoan) [facility]* Attachments The following attachments cannot be sent through Care Everywhere. * Sore Throat (Samoan) * URI (Upper Respiratory Infection): Viral (Samoan) documented in [facility] encounterUniversity [facility] CenterReason for referral (narrative)* Consultation (Urgent) - New Request Specialty Diagnoses / Procedures Referred By Job schaeffer Referred To Contact Family Medicine Diagnoses Respiratory tract congestion with cough Allergic rhinitis, unspecified seasonality, unspecified trigger Krys Beck I, [employer]PERVIS[employer] [address] [facility] [address] [place] [address] Referral ID Status Reason Start Date Expiration Date V isits Requested Visits Authorized [id number] New Request 01/22/2024 02/15/2025 1 1 [facility] Summary Purpose Family History No Family History Records FoundNo Family History Records FoundNo Family History Records FoundNo Family History Records FoundNo Family History Records FoundNo Family History Records FoundNo Family History Records FoundNo Family History Records Found Advance Directives No Advanced Directives Records FoundDocuments on File Type Date Recorded Patient Hip Hop Dancer Expl anation Advance Directives and Livin g Will 08/08/2019 9:57 AM Documents on File Type Date Recorded Patient Hip Hop Dancer Expl anation Advance Directives and Livin g Will 06/04/2020 3:19 AM Discharge Instructions The following attachments cannot be sent through Care Everywhere. * Bronchitis, Antibiotic Treatment (Adult) (Samoan) in this encounter* Attachments The following attachments cannot be sent through Care Everywhere. * Viral Syndrome (Adult) (Samoan) documented in this encounter* Discharge Instr - Care Coordination* Yumiko Arcos RN - 08/08/2019 12:08 PM EDT [facility] Trust the experts at [facility] to meet your healthcare needs. When you make an appointment with [facility], it's the start of a long-lasting partnership that's committed to your health. We provide the very best prevention, wellness and illness care, and give you access to the advanced medical services and expert treatment available at [facility]. Please note that the providers listed below are accepting new patients. [place]: [address] [facility], [address] [place] [address] Dao Concepcion MD [address] [place] [address] Radha Larson SHOP ESTIMATOR [address] [place] [address] Gage Maya MD [address] [place] [address] MD Marian Veras, MARY Jeong DNP For the most up-to-date information on a care provider in your community, use the Find a Doctor tool on Partnered * Additional Instructions* Shyam Ortiz CNP - 08/08/2019 Use the Zofran as needed for nausea. Make sure that you are drinking plenty of fluids and advance your diet as tolerated. You will be quarantined for 2 weeks. Please wash your hands frequently. Follow- up with your primarycare provider make a follow-up appointment. Return here for new or worsening symptoms. * Attachments The following attachments cannot be sent through Care Everywhere. * Nausea and Vomiting (Samoan) * Diarrhea (Samoan) documented in this encounter* Attachments The following attachments cannot be sent through Care Everywhere. * Ankle Sprain (Samoan) documented in this encounter* Attachments The following attachments cannot be sent through Care Everywhere. * VIRAL SYNDROME OR COLD ([facility]) (MICRONESIAN) documented in this encounter Assessments Diagnosis Bronchitis - Primary Bronchitis, not specified as acute or chronic Diagnosis Viral syndrome- Primary Unspecified viral infection, in conditions classified elsewhere and of unspecified site Diagnosis Nausea vomiting and diarrhea Diagnosis Vertigo, benign positional, unspecified laterality- Primary Diagnosis Sprain of right ankle, unspecified ligament, initial encounter- Primary Diagnosis Viral URI with cough- Primary Acute upper respiratory infections of unspecified site Instructions * Patient Instructions* Yasemin Seals CNP - 12/22/2019 11:37 AM EDT I recommend Physical therapy. Jordan Maneuver for Vertigo: Exercises Introduction The Jordan maneuver is a series of movements your doctor may use to treat your vertigo. Here are thesteps for the exercises. Your doctor or physical therapist will guide you through the movements. A single 10- to 15-minute session often is all that's needed. Crystal debris (canaliths) cause the vertigo. When your head is moved into different positions, the debris moves freely. This may cause your symptoms to stop. How to do the exercises Step 1 1. You will sit on the doctor's exam table. Your legs will be out in front of you. The doctor or physical therapist will turn your head so that it is correction between looking straight ahead and looking to the side that causes the worst vertigo. 2. Without changing your head position, he or she will guide you back quickly. Your shoulders will be on the table. Your head will hang over the edge of the table. At this point, the side of your head that is causing the worst vertigo will face the floor. You'll stay in this position for 30 secondsor until your symptoms stop. Step 2 1. Then, the doctor or physical therapist will turn your head to the other side. You don't need to lift your head. The other side of your head will face the floor. You will stay in this position for 30 seconds or until your symptoms stop. Step 3 1. The doctor or physical therapist will help you roll your body in the same direction that your head is facing. You will lie on your side. (For example, if you are looking to your right, you will roll onto your right side.) The side that causes the worst symptoms should be facing up. You'll stay in this position for another 30 seconds or until your symptoms stop. Step 4 1. The doctor or physical therapist will then help you to sit back up. Your legs will hang off the table on the same side that you were facing. Follow-up care is a edwards part of your treatment and safety. Be sure to make and go to all appointments, and call your doctor if you are having problems. It's also a good idea to know your test resultsand keep a list of the medicines you take. Where can you learn more? Log into your personal health record on https://ishBowlt.Duable Chinese and enter A855 in the Education box to learn more about Jordan Maneuver for Vertigo: Exercises. Current as of: July 04, 2019 Content Version: 12.6 [employer]. Care instructions adapted under license by your healthcare professional. If you have questions about a medical condition or this instruction, always ask your healthcare professional. [employer] disclaims any warranty or liability for your use of this information. Benign Paroxysmal Positional Vertigo (BPPV): Care Instructions Your Care Instructions Benign paroxysmal positional vertigo, also called BPPV, is an inner ear problem. It causes a spinning or whirling sensation when you move your head. This sensation is called vertigo. The vertigo usually lasts for less than a minute. People often have vertigo spells for a few days or weeks. Then the vertigo goes away. But it may come back again. The vertigo may be mild, or it may be bad enough to cause unsteadiness, nausea, and vomiting. When you move, your inner ear sends messages to the brain. This helps you keep your balance. Vertigo can happen when debris builds up in the inner ear. The buildup can cause the inner ear to send thewrong message to the brain. Your doctor may move you in different positions to help your vertigo get better faster. This is called the Jordan maneuver. Your doctor may also prescribe medicines or exercises to help with your symptoms. Follow-up care is a edwards part of your treatment and safety. Be sure to make and go to all appointments, and call your doctor if you are having problems. It's also a good idea to know your test resultsand keep a list of the medicines you take. How can you care for yourself at home? If your doctor suggests that you do Harris-Daroff exercises: ? Sit on the edge of a bed or sofa. Quickly lie down on the side that causes the worst vertigo. Lieon your side with your ear down. ? Stay in this position for at least 30 seconds or until the vertigo goes away. ? Sit up. If this causes vertigo, wait for it to stop. ? Repeat the procedure on the other side. ? Repeat this 10 times. Do these exercises 2 times a day until the vertigo is gone. When should you call for help? Call 911 anytime you think you may need emergency care. For example, call if: You have symptoms of a stroke. These may include: ? Sudden numbness, tingling, weakness, or loss of movement in your face, arm, or leg, especially ononly one side of your body. ? Sudden vision changes. ? Sudden trouble speaking. ? Sudden confusion or trouble understanding simple statements. ? Sudden problems with walking or balance. ? A sudden, severe headache that is different from past headaches. Call your doctor now or seek immediate medical care if: You have new or worse nausea and vomiting. You have new symptoms such as hearing loss or roaring in your ears. Watch closely for changes in your health, and be sure to contact your doctor if: You are not getting better as expected. Your vertigo gets worse. Where can you learn more? Log into your personal health record on https://Trusera.Duable Chinese and enter P372 in the Education box to learn more about Benign Paroxysmal Positional Vertigo (BPPV): Care Instructions. Current as of: July 04, 2019 Content Version: 12.6 [employer]visor. Care instructions adapted under license by your healthcare professional. If you have questions about a medical condition or this instruction, always ask your healthcare professional. [employer] disclaims any warranty or liability for your use of this information. documented in this encounter History of Present Illness * Yasemin Seals CNP - 12/22/2019 11:32 AM EDT Patient Name: [facility] Location: [place] [address] [place] [id number] Date Of : Date Of Visit: 1995 12/22/2019 MRN# Provider: [id number] Yasemin Seals CNP Chief Complaint Patient presents with Dizziness Dizziness x 6 days. Orthostatic vitals completed. c/o dizziness from lying to sitting. Assessment & Plan 1. Vertigo, benign positional, unspecified laterality Return if symptoms worsen or fail to improve. Medical Decision Making I strongly advised that he seek PT treatment since his own attempts at [facility] have not been successful. Additional Clinical Comments He has the meclizine and we discussed dosages (25 mg TID to Qid) Influenza Immunization No [facility] COVID-19 Mask Status: Does the patient have classic COVID-19 symptoms? No, the patient does not have COVID-19 symptoms and the patient WAS wearing a mask during the visit Subjective 24 y.o. male presents with Dizziness (Dizziness x 6 days. Orthostatic vitals completed. c/o dizziness from lying to sitting.) For several days, about , he had had dizziness that tends to be temporary with getting up or sudden movement. Room is spinning for short time. Is intermittant with movement. Review Of Systems Review of Systems Constitutional: Positive for activity change. Negative for appetite change, chills and fever. HENT: Negative for congestion, sinus pain and sore throat. Respiratory: Negative for cough. Gastrointestinal: Negative for nausea and vomiting. Musculoskeletal: Negative for myalgias. Neurological: Positive for dizziness. Negative for weakness and headaches. Medical History History reviewed. No pertinent past medical history. Past Surgical History: Procedure Laterality Date WISDOM TOOTH EXTRACTION There is no problem list on file for this patient. Social History Social History Tobacco Use Smoking status: Never Smoker Smokeless tobacco: Never Used Substance Use Topics Alcohol use: Yes Comment: rarely Drug use: Never Family History History reviewed. No pertinent family history. Objective Physical Exam BP 116/78 (BP Location: Right arm, Patient Position: Standing, BP Cuff Size: Adult) Comment: orthostatic vitals / kse Comment (BP Location): orthostatic vitals / kse Comment (Patient Position): orthostatic vitals / kse Comment (BP Cuff Size): orthostatic vitals / kse Pulse 84 Comment: orthostaticvitals / kse Temp 98.1 F (36.7 C) (Infrared) Resp 16 Comment: orthostatic vitals / kse Ht 5' 11 Wt 81.6 kg (180 lb) SpO2 97% Comment: orthostatic vitals / kse BMI 25.10 kg/m Vision/Hearing Exam:No exam data present Physical Exam Vitals signs and nursing note reviewed. Constitutional: General: He is not in acute distress. Appearance: Normal appearance. He is not ill-appearing, toxic-appearing or diaphoretic. HENT: Head: Normocephalic and atraumatic. Neck: Musculoskeletal: Normal range of motion. Cardiovascular: Rate and Rhythm: Normal rate. Pulmonary: Effort: Pulmonary effort is normal. Musculoskeletal: Normal range of motion. Skin: General: Skin is warm and dry. Neurological: Mental Status: He is alert and oriented to person, place, and time. Comments: He would get dizzy with certain movements. Did not check neuro as he is very dx in descriptions of PV Psychiatric: Mood and Affect: Mood normal. Behavior: Behavior normal. Procedure Notes Procedures Results No results found for this or any previous visit (from the past 168 hour(s)). No orders to display Orders Placed This Visit No orders of the defined types were placed in this encounter. Medication List At End Of Visit Current Outpatient Medications Medication Sig Dispense Refill ondansetron (Zofran ODT) 4 MG disintegrating tablet Dissolve 1 (one) tablet (4 mg total) on top of tongue every 8 (eight) hours as needed for nausea . 15 tablet 0 No current facility-administered medications for this visit. Patient Instructions I recommend Physical therapy. Jordan Maneuver for Vertigo: Exercises Introduction The Jordan maneuver is a series of movements your doctor may use to treat your vertigo. Here are thesteps for the exercises. Your doctor or physical therapist will guide you through the movements. A single 10- to 15-minute session often is all that's needed. Crystal debris (canaliths) cause the vertigo. When your head is moved into different positions, the debris moves freely. This may cause your symptoms to stop. How to do the exercises Step 1 1. You will sit on the doctor's exam table. Your legs will be out in front of you. The doctor or physical therapist will turn your head so that it is correction between looking straight ahead and looking to the side that causes the worst vertigo. 2. Without changing your head position, he or she will guide you back quickly. Your shoulders will be on the table. Your head will hang over the edge of the table. At this point, the side of your head that is causing the worst vertigo will face the floor. You'll stay in this position for 30 secondsor until your symptoms stop. Step 2 1. Then, the doctor or physical therapist will turn your head to the other side. You don't need to lift your head. The other side of your head will face the floor. You will stay in this position for 30 seconds or until your symptoms stop. Step 3 1. The doctor or physical therapist will help you roll your body in the same direction that your head is facing. You will lie on your side. (For example, if you are looking to your right, you will roll onto your right side.) The side that causes the worst symptoms should be facing up. You'll stay in this position for another 30 seconds or until your symptoms stop. Step 4 1. The doctor or physical therapist will then help you to sit back up. Your legs will hang off the table on the same side that you were facing. Follow-up care is a edwards part of your treatment and safety. Be sure to make and go to all appointments, and call your doctor if you are having problems. It's also a good idea to know your test resultsand keep a list of the medicines you take. Where can you learn more? Log into your personal health record on https://ishBowlt.Duable Chinese and enter A855 in the Education box to learn more about Jordan Maneuver for Vertigo: Exercises. Current as of: July 04, 2019 Content Version: 12.6 [employer]. Care instructions adapted under license by your healthcare professional. If you have questions about a medical condition or this instruction, always ask your healthcare professional. [employer]rock [employer]visor disclaims any warranty or liability for your use of this information. Benign Paroxysmal Positional Vertigo (BPPV): Care Instructions Your Care Instructions Benign paroxysmal positional vertigo, also called BPPV, is an inner ear problem. It causes a spinning or whirling sensation when you move your head. This sensation is called vertigo. The vertigo usually lasts for less than a minute. People often have vertigo spells for a few days or weeks. Then the vertigo goes away. But it may come back again. The vertigo may be mild, or it may be bad enough to cause unsteadiness, nausea, and vomiting. When you move, your inner ear sends messages to the brain. This helps you keep your balance. Vertigo can happen when debris builds up in the inner ear. The buildup can cause the inner ear to send thewrong message to the brain. Your doctor may move you in different positions to help your vertigo get better faster. This is called the Jordan maneuver. Your doctor may also prescribe medicines or exercises to help with your symptoms. Follow-up care is a edwards part of your treatment and safety. Be sure to make and go to all appointments, and call your doctor if you are having problems. It's also a good idea to know your test resultsand keep a list of the medicines you take. How can you care for yourself at home? If your doctor suggests that you do Harris-Daroff exercises: ? Sit on the edge of a bed or sofa. Quickly lie down on the side that causes the worst vertigo. Lieon your side with your ear down. ? Stay in this position for at least 30 seconds or until the vertigo goes away. ? Sit up. If this causes vertigo, wait for it to stop. ? Repeat the procedure on the other side. ? Repeat this 10 times. Do these exercises 2 times a day until the vertigo is gone. When should you call for help? Call 911 anytime you think you may need emergency care. For example, call if: You have symptoms of a stroke. These may include: ? Sudden numbness, tingling, weakness, or loss of movement in your face, arm, or leg, especially ononly one side of your body. ? Sudden vision changes. ? Sudden trouble speaking. ? Sudden confusion or trouble understanding simple statements. ? Sudden problems with walking or balance. ? A sudden, severe headache that is different from past headaches. Call your doctor now or seek immediate medical care if: You have new or worse nausea and vomiting. You have new symptoms such as hearing loss or roaring in your ears. Watch closely for changes in your health, and be sure to contact your doctor if: You are not getting better as expected. Your vertigo gets worse. Where can you learn more? Log into your personal health record on https://ishBowlt.Duable Chinese and enter P372 in the Education box to learn more about Benign Paroxysmal Positional Vertigo (BPPV): Care Instructions. Current as of: July 04, 2019 Content Version: 12.6 Frock Advisor. Care instructions adapted under license by your healthcare professional. If you have questions about a medical condition or this instruction, always ask your healthcare professional. [employer]visor disclaims any warranty or liability for your use of this information. documented in this encounter Reason for Referral Status Reason Specialty Diagnoses / Procedures Referred By Contact Referred To Contact Pending Review Family Medicine Diagnoses Viral URI with cough Ariane Rosas PA [address] [place] [id number] Additional Source Comments (unrecognized sect ion and content) No Status Records FoundNo Status Records FoundNo Status Records FoundNo Status Records FoundNo Status Records FoundNo Status Records FoundNo Status Records FoundNo Status Records Found INFORMATION SOURCE (unrecogn ized section and content) DATE CREATED AUTHOR 09/08/2017 [facility] DATE CREATED AUTHOR AUTHOR'S ORGANIZ ATION 05/01/2020 [facility] DATE CREATED AUTHOR AUTHOR'S ORGANIZ ATION 10/11/2021 [facility] DATE CREATED AUTHOR AUTHOR'S ORGANIZ ATION 09/21/2023 [facility] DATE CREATED AUTHOR AUTHOR'S ORGANIZ ATION 07/11/2024 [facility] DATE CREATED AUTHOR AUTHOR'S ORGANIZ ATION 07/27/2024 [facility] DATE CREATED AUTHOR AUTHOR'S ORGANIZ ATION 08/29/2024 [facility] CREATED AUTHOR AUTHOR'S ORGANIZ ATION 11/16/2024 [facility] Reason for Visit (unrecogniz ed section and content) Reason Comments Cough Reason Comments Cough pt seen here yesterd ay for common cold and placed on tessalon pearls. pt presents today because his symptoms have not resolved. he did not make f/u appt and states the medicine is not working. pt c/o ongoing JARA making him dizzy and lightheaded. Headache Reason Comments Fatigue Diarrhea Nausea Cough Reason Comments Dizziness Dizziness x 6 days. Orthostatic vitals completed. c/o dizziness from lying to sitting. Reason Comments Ankle Pain Reason Comments Sore Throat Cough Reason Comments Nasal Congestion Pt states nasal usama estion for past 1-2 weeks. NO relief with OTC meds nasal spray, mucinex. Pt has frequent cough, states difficulty swallowing, able to keep food and fluids dowm. No n/v. No sore throat. Reason Comments Dental Pain Pt comes in due to d ental pain that started over 6 hours ago. Pt was previously at [facility] for the same reason. Pain 10/10 to the left lower jaw and pt thinks he possibly has a chipped tooth. Reason Comments Dental Pain Left sided dental pa in that started today, has known abscess on the lower left side Reason Comments Cough Patient has had an o n going cough that he is being treated for but the cough wont stop per patient Reason Comments Sore Throat Pt has sore throat s david Tuesday. Pt rates pain 3/10 Reason Comments Sore Throat Shyam Ortiz CNP - 08/08/2019 11:46 AM Mary Valenzuela RN - 08/08/2019 11:12 AM Mary Valenzuela RN - 08/08/2019 9:38 AM Jamia Lopez - 08/08/2019 9:37 AM EDT ED Notes (unrecognized secti on and content) [facility] ED [place] Note: NAME: Landry [place] 23 y.o. CSN: [id number] PCP: Physician No History: Chief Complaint: Fatigue; Diarrhea; Nausea; and Cough HPI: The history was obtained from the patient. Landry is a 23 y.o. male who presents with a chief complaint of Fatigue; Diarrhea; Nausea; and Cough. Patient reports fatigue as well as vomiting and diarrhea since yesterday. He does also report a mild cough. He works at [employer] and he states 3 people have tested positive for coronavirus there. It is unknown if he was in contact with these people. He is worried about coronavirus at this time and would like tested. He is otherwise healthy. He is a non-smoker. Denies chest pain, shortness of breath, abdominal pain, flank pain, urinary symptoms. PMHx: History reviewed. No pertinent past medical history. PMSx: History reviewed. No pertinent surgical history. FAM. Hx: History reviewed. No pertinent family history. SOC. Hx: Social History Socioeconomic History Marital status: Single Spouse name: Not on file Number of children: Not on file Years of education: Not on file Highest education level: Not on file Occupational History Not on file Social Needs Financial resource strain: Not on file Food insecurity Worry: Not on file Inability: Not on file Transportation needs Medical: Not on file Non-medical: Not on file Tobacco Use Smoking status: Never Smoker Smokeless tobacco: Never Used Substance and Sexual Activity Alcohol use: Never Frequency: Never Drug use: Never Sexual activity: Not on file Lifestyle Physical activity Days per week: Not on file Minutes per session: Not on file Stress: Not on file Relationships Social connections Talks on phone: Not on file Gets together: Not on file Attends baptist service: Not on file Active member of club or organization: Not on file Attends meetings of clubs or organizations: Not on file Relationship status: Not on file Other Topics Concern Not on file Social History Narrative Not on file MEDs: No current outpatient medications on file prior to encounter. ALL: No Known Allergies ROS: Positives and pertinent negatives as per HPI. All other systems were reviewed and are negative. Physical Exam: Patient Vitals for the past 24 hrs: BP Temp Temp src Pulse Resp SpO2 Height Weight 08/08/19 1130 121/73 99 % 08/08/19 1030 115/72 97 % 08/08/19 1000 114/77 93 % 08/08/19 0946 120/78 98.9 F (37.2 C) Oral 86 18 96 % 5' 11 74.8 kg (165 lb) Physical Exam Vitals signs and nursing note reviewed. Constitutional: General: He is not in acute distress. Appearance: Normal appearance. He is well-developed. He is not ill-appearing, toxic-appearing or diaphoretic. HENT: Head: Normocephalic and atraumatic. Nose: Nose normal. Eyes: General: No scleral icterus. Conjunctiva/sclera: Conjunctivae normal. Neck: Musculoskeletal: Neck supple. Cardiovascular: Rate and Rhythm: Normal rate and regular rhythm. Heart sounds: Normal heart sounds. No murmur. Pulmonary: Effort: Pulmonary effort is normal. No respiratory distress. Breath sounds: Normal breath sounds and air entry. Abdominal: General: Abdomen is flat. Bowel sounds are normal. There is no distension. Palpations: Abdomen is soft. Tenderness: There is no abdominal tenderness. There is no right CVA tenderness or left CVA tenderness. Musculoskeletal: Right lower leg: He exhibits no swelling. No edema. Left lower leg: He exhibits no swelling. No edema. Skin: General: Skin is warm and dry. Capillary Refill: Capillary refill takes less than 2 seconds. Findings: No rash. Neurological: General: No focal deficit present. Mental Status: He is alert and oriented to person, place, and time. Psychiatric: Behavior: Behavior normal. Behavior is cooperative. Laboratory & Radiological Imaging (if done): Labs Reviewed CHEM 7 - Abnormal; Notable for the following components: Result Value Glucose 100 (*) All other components within normal limits Narrative: The eGFR should be used for monitoring renal function only and not for medication dosing. CBC WITH AUTO DIFFERENTIAL - Abnormal; Notable for the following components: WBC 3.98 (*) Platelets 138 (*) Lymphocytes Abs 0.61 (*) All other components within normal limits COVID-19, MOLECULAR - Normal LIPASE - Normal CBC AND DIFFERENTIAL Narrative: The following orders were created for panel order CBC w/ Diff. Procedure Abnormality Status --------- ------ CBC Auto Differential[[id number]] Abnormal Final result Please view results for these tests on the individual orders. No orders to display MDM: CBC, Chem-7, lipase, hepatic function panel, coronavirus negative. Patient was given IV fluids and Zofran. He is able to tolerate p.o. fluids. He is without abdominal pain or flank pain. Given prescription for Zofran with instructions to drink clear liquids and advance diet as tolerated. We also discussed signs and symptoms of worsening condition when to return to the ER. He is to contact his primary care provider make a follow-up appointment the next 2 to 3 days. We also discussed use of self quarantine for the next 2 weeks. Discharged in stable condition. Clinical Impression: 1. Nausea vomiting and diarrhea Disposition: Patient is being discharge home. New Prescriptions ondansetron (Zofran ODT) 4 MG disintegrating tablet Dissolve 1 (one) tablet (4 mg total) on top of tongue every 8 (eight) hours as needed for nausea . Shyam Ortiz CNP ED Advanced Practice Provider [facility] (Please note that portions of this note have been completed with a voice recognition software. Efforts were made to correct any errors, but occasionally words are mis-transcribed.) Shyam Ortiz CNP 08/08/19 1154 PO challenge started at this time by verbal order by shyam PT STATES SINCE YESTERDAY HE HAS CAME DOWN WITH A COUGH, FATIGUE, NAUSEA, AND DIARRHEA. Pt states he has had a headache since Tuesday as well. PT STATES HE WORKS AT [employer] AND THERE HAS BEEN 3 CONFIRMED CASES OF COVID-19. BUT HE IS UNAWARE IF HE WAS WITHIN CLOSE CONTACT WITH THESE PATIENTS. Special isolation precautions are in place with signage outside this patient's room. This RN performs hand hygiene and enters the patient room wearing: ? gloves ? an appropriately fitting (N-95, PAPR, Aura) mask ? face shield ? protective gown to provide nursing care. See nursing documentation for the care provided. Bed: 25 Expected date: Expected time: Means of arrival: Comments: R2 documented in this encounter Bed: 15 Expected date: Expected time: Means of arrival: Comments: R2 documented in this encounter ED Attestation Note - Dedrick Wilkins MD - 06/04/2020 3:12 AM EDT Miscellaneous Notes (unrecog nized section and content) ED Attestation: I was personally available for consult in the ED for this patient, if the Advanced Practice Provider (BRYSON) needed any assistance. The BRYSON evaluated the patient independently for a complaint of Ankle Pain, and completed their own examination, documentation, and discharge. documented in this encounter Care Teams (unrecognized sec tion and content) Environmental Management Specialist Relationship Specialty Start Date End Date Gage Lyon MD PCP - General Family Medicine 06/09/16 Environmental Management Specialist Relationship Specialty Start Date End Date Gage Lyon MD PCP - General Family Medicine 06/09/16 Environmental Management Specialist Relationship Specialty Start Date End Date Gage Lyon MD PCP - General Family Medicine 06/09/16 Scheduled Active and Recently Administ ered Medications (unrecognized section and content) Medication Order 07/19/2023 07/20/2023 07/21/2023 Amoxicillin-clavulanate (AUGMENTIN) 875-125 MG per tablet 1 tablet (COMPLETED) 1 tablet, Oral, ONCE, 1 dose, On Padmini 07/21/23 at 0130 0105 (Given - Provid er: Gladis Gracia RN) hydroCODone-acetaminophen (NORCO) 5-325 MG per tablet 1 tablet (COMPLETED) 1 tablet, Oral, ONCE, 1 dose, On Padmini 07/21/23 at 0130 0105 (Given - Provid er: Gladis Garcia RN) Scheduled Medication Order 10/10/2023 10/11/2023 10/12/2023 Amoxicillin-clavulanate (AUGMENTIN) 875-125 MG per tablet 1 tablet (COMPLETED) 1 tablet, Oral, ONCE, 1 dose, On Tue10/12/23 at 2345 2330 (Given - Provid er: Karen Joseph RN) hydroCODone-acetaminophen (NORCO) 5-325 MG per tablet 1 Each (COMPLETED) Oral, ONCE, 1 dose, On Tue10/12/23 at 2345, Provide patient with 4 pack of Acetaminophen/Hydrocodone 325-5 mg, take 1 tabs by mouth every 4 hours as needed for pain. Nursing to document as GIVEN on the MAY and include comment of patient receipt of the 4 pack. 2330 (Given - Provid er: Karen Joseph RN - Comment: Home pack verified by Dr. Byrne. Education provided regarding medication dosing and administration. Pt informed of not driving while taking medication. photo copy signed by pt and home pack handed to pt at this time ) FOR RECORDS PERTAINING TO PATIENTS WHO ARE OR HAVE BEEN ENROLLED IN A CHEMICAL DEPENDENCY/SUBSTANCEABUSE PROGRAM, SOME INFORMATION MAY BE OMITTED. This clinical summary was aggregated from multiple sources. Caution should be exercised in using it in the provision of clinical care. This summary normalizes information from multiple sources, and as a consequence, information in this document may materially change the coding, format and clinical context of patient data. In addition, data may be omitted in some cases. CLINICAL DECISIONS SHOULD BE BASED ON THE PRIMARY CLINICAL RECORDS. [employer] provides no warranty or guarantee of the accuracy or completeness of information in this document.
[2024-12-08 02:53] VITALS: BP 123/78; PULSE 85; RESP 16; TEMP 36.7; O2SAT 100
== END 2024-12-08 02:55 | disposition home or self-care (01) ==
PROVIDERS: Emergency Provider Emergency Medicine; Visit Provider Emergency Medicine
DX: J06.9 Acute upper respiratory infection, unspecified (principal); H66.92 Otitis media, unspecified, left ear; K08.89 Other specified disorders of teeth and supporting structures
CPT/HCPCS: 99283